=== PATIENT | male | born 1950 | race Caucasian/White ===

== ENCOUNTER 2016-11-20 15:49 | Inpatient (IN) | payer OTHER, MEDICAID ==
[2016-11-20] MEDS ORDERED: OXYCODONE-ACETAMINOPHEN 5-325 MG TABLET PO ONE ×2 (16:42→19:47)
--- NOTE | 2016-11-20 16:44 | ER Document Report ---
ED Medical Screen (RME) - General Chief Complaint: Fall Injury Stated Complaint: FALL FACE LACERATION Time seen by provider: 16:42 Mode of Arrival: Wheelchair Information source: Patient Notes: 66-year-old male was on the ladder and it slipped and he and the ladder fell onto a telephone box and ground causing laceration to his left top of his head, headache, left retro-sternal chest pain. No shortness of breath. Tetanus is current.. Consult Dr. SALEH for CTs. Abd.is nontender and triaged. TRAVEL OUTSIDE OF THE [place] IN LAST 30 DAYS: No - Related Data Allergies/Adverse Reactions: No Known Allergies Allergy (Verified 11/20/16 16:06) Past Medical History - Past Medical History Cardiac Medical History: Reports: Hx Heart Attack - [place] in 1990, Hx Hypertension Renal/ Medical History: Denies: Hx Peritoneal Dialysis GI Medical History: Reports: Hx Gastroesophageal Reflux Disease Past Surgical History: Reports: Hx Orthopedic Surgery - left thumb - Immunizations Hx Diphtheria, Pertussis, Tetanus Vaccination: - unknown Physical Exam - Vital signs Vitals: Temp Pulse Resp BP Pulse Ox 98.4 F 72 20 147/88 H 98 11/20/16 16:08 11/20/16 16:08 11/20/16 16:08 11/20/16 16:08 11/20/16 16:08 Course - Vital Signs Vital signs: Temp Pulse Resp BP Pulse Ox 98.4 F 72 20 147/88 H 98 11/20/16 16:08 11/20/16 16:08 11/20/16 16:08 11/20/16 16:08 11/20/16 16:08
[2016-11-20 17:00] LABS: ABSOLUTE EOSINOPHILS # (AUTO) 0.2 10^3/uL (0.0-0.6); ABSOLUTE MONOCYTES (AUTO) 0.6 10^3/uL (0.1-1.4); ABSOLUTE NEUT (AUTO) 4.5 10^3/uL (1.7-8.2); BASOPHILS % (AUTO) 0.6 % (0-2); EOSINOPHILS % (AUTO) 2.4 % (0-6); HEMATOCRIT 41.7 % (37.9-51.0); HEMOGLOBIN 14.3 g/dL (13.5-17.0); HGB HCT DIFFERENCE 1.2; LYMPHOCYTES % (AUTO) 27.3 % (13-45); MEAN CORPUSCULAR HEMOGLOBIN 33.7 pg (27.0-33.4); MEAN CORPUSCULAR HGB CONC 34.2 g/dL (32.0-36.0); MEAN CORPUSCULAR VOLUME 98 fl (80-97); MONOCYTES % (AUTO) 8.8 % (3-13); RED BLOOD COUNT 4.24 10^6/uL (4.35-5.55); RED CELL DISTRIBUTION WIDTH 14.2 % (11.5-14.0); SEGMENTED NEUTROPHILS % (AUTO) 60.9 % (42-78); WHITE BLOOD COUNT 7.3 10^3/uL (4.0-10.5)
[2016-11-20 17:22] LABS: ALANINE AMINOTRANSFERASE 27 U/L (21-72); ALBUMIN 4.6 g/dL (3.5-5.0); ALKALINE PHOSPHATASE 96 U/L (38-126); ANION GAP 14 (5-19); ASPARTATE AMINO TRANSFERASE 30 U/L (17-59); BILIRUBIN,DIRECT 0.2 mg/dL (0.0-0.4); BILIRUBIN,TOTAL 0.5 mg/dL (0.2-1.3); BLOOD UREA NITROGEN 18 mg/dL (7-20); CALCIUM 9.6 mg/dL (8.4-10.2); CARBON DIOXIDE 24 mmol/L (22-30); CHLORIDE 106 mmol/L (98-107); CREATININE RESULT 0.87 mg/dL (0.52-1.25); GLUCOSE 96 mg/dL (75-110); POTASSIUM 3.9 mmol/L (3.6-5.0); SODIUM 143.9 mmol/L (137-145); TOTAL PROTEIN 7.9 g/dL (6.3-8.2)
[2016-11-20 17:50] LABS: PARTIAL THROMBOPLASTIN TIME 30.5 SEC (23.5-35.8); PROTHROMBIN TIME 12.8 SEC (11.4-15.4)
--- NOTE | 2016-11-20 18:17 | EKG REPORT ---
SEVERITY:- ABNORMAL ECG - SINUS RHYTHM FIRST DEGREE AV BLOCK PROBABLE LEFT ATRIAL ABNORMALITY LEFT BUNDLE BRANCH BLOCK : Confirmed by: Wing Vides MD 20-Nov-2016 18:16:51
[2016-11-20] MEDS ORDERED: HYDROMORPHONE HCL INJ/PF 2 MG/ML AMPULE IV ONE (20:45)
--- NOTE | 2016-11-20 20:47 | ER Document Report ---
ED General - General Chief Complaint: Fall Injury Stated Complaint: FALL FACE LACERATION Mode of Arrival: Wheelchair Information source: Patient Notes: 66-year-old male fell 6-7 feet striking a satellite dish with his chest and hitting his head on a concrete rock. pt denies any other concerns, notes chest wall pain and left sided rib pain with deep inspiration TRAVEL OUTSIDE OF THE [place] IN LAST 30 DAYS: No - HPI Onset: Just prior to arrival Onset/Duration: Sudden Quality of pain: Achy Severity: Mild Pain Level: 1 Associated symptoms: Other Exacerbated by: Denies Relieved by: Denies Similar symptoms previously: Yes Recently seen / treated by doctor: No - Related Data Allergies/Adverse Reactions: No Known Allergies Allergy (Verified 11/20/16 16:06) Past Medical History - General Information source: Patient - Social History Smoking Status: Current Every Day Smoker Cigarette use (# per day): Yes Chew tobacco use (# tins/day): No Smoking Education Provided: No Family History: Reviewed & Not Pertinent Patient has suicidal ideation: No Patient has homicidal ideation: No - Past Medical History Cardiac Medical History: Reports: Hx Heart Attack - [place] in 1990, Hx Hypertension Renal/ Medical History: Denies: Hx Peritoneal Dialysis GI Medical History: Reports: Hx Gastroesophageal Reflux Disease Past Surgical History: Reports: Hx Orthopedic Surgery - left thumb - Immunizations Hx Diphtheria, Pertussis, Tetanus Vaccination: - unknown Review of Systems - Review of Systems Notes: REVIEW OF SYSTEMS: CONSTITUTIONAL : Denies fever, chills, or sweats. Denies recent illness. EENT: Denies eye, ear, throat, or mouth pain or symptoms. Denies nasal or sinus congestion or discharge. Denies throat, tongue, or mouth swelling or difficulty swallowing. CARDIOVASCULAR: Denies chest pain. Denies palpitations or racing or irregular heart beat. Denies ankle edema. RESPIRATORY: Admits to chest wall pain GASTROINTESTINAL: Denies abdominal pain or distention. Denies nausea, vomiting , or diarrhea. Denies blood in vomitus, stools, or per rectum. Denies black, tarry stools. Denies constipation. GENITOURINARY: Denies difficulty urinating, painful urination, burning, frequency, blood in urine, or discharge. MUSCULOSKELETAL: Denies back or neck pain or stiffness. Denies joint pain or swelling. SKIN: Denies rash, lesions or sores. HEMATOLOGIC : Denies easy bruising or bleeding. LYMPHATIC: Denies swollen, enlarged glands. NEUROLOGICAL: Denies confusion or altered mental status. Denies passing out or loss of consciousness. Denies dizziness or lightheadedness. Denies headache. Denies weakness or paralysis or loss of use of either side. Denies problems with gait or speech. Denies sensory loss, numbness, or tingling. Denies seizures. PSYCHIATRIC: Denies anxiety or stress. Denies depression, suicidal ideation, or homicidal ideation. ALL OTHER SYSTEMS REVIEWED AND NEGATIVE. Dictation was performed using [employer] recognition software PHYSICAL EXAMINATION: GENERAL: Well-appearing, well-nourished and in no acute distress. C collar in place. GCS 15 HEAD: Laceration left scalp 4 cm EYES: Pupils equal round and reactive to light, extraocular movements intact, sclera anicteric, conjunctiva are normal. ENT: Nares patent, oropharynx clear without exudates. Moist mucous membranes. No hemanotympanum . No blood in nares. No dental fracture NECK: Normal range of motion, supple without lymphadenopathy. Trachea midline LUNGS: Breath sounds clear to auscultation bilaterally and equal. No wheezes rales or rhonchi. HEART: Regular rate and rhythm without murmurs. Pulses intact all throughout. ABDOMEN: Soft, nontender, nondistended abdomen. No guarding, no rebound. No masses appreciated. Musculoskeletal: Normal range of motion, no pitting or edema. No cyanosis. Hip non tender, stable. NEUROLOGICAL: Cranial nerves grossly intact. Normal speech, normal gait. Normal sensory, motor, and reflex exams. PSYCH: Normal mood, normal affect. SKIN: Laceration scalp, contusion right chest wall U/S fast exam notes no obvious free fluid but this is a nondiagnostic evaluation Physical Exam - Vital signs Vitals: Temp Pulse Resp BP Pulse Ox 98.4 F 72 20 147/88 H 98 11/20/16 16:08 11/20/16 16:08 11/20/16 16:08 11/20/16 16:08 11/20/16 16:08 Course - Re-evaluation Re-evalutation: 11/20/16 21:11 CT was consistent with a manubrium fracture as well as a left fourth rib fracture. Patient was discussed with on-call surgeon.. He recommends admission , patient is willing to be admitted 11/20/16 21:13 - Vital Signs Vital signs: Temp Pulse Resp BP Pulse Ox 98.4 F 72 20 147/88 H 98 11/20/16 16:08 11/20/16 16:08 11/20/16 16:08 11/20/16 16:08 11/20/16 16:08 - Laboratory Result Diagrams: 11/20/16 16:50 11/20/16 16:50 Laboratory results interpreted by me: 11/20/16 16:50 RBC 4.24 L MCV 98 H MCH 33.7 H RDW 14.2 H - Diagnostic Test Radiology reviewed: Image reviewed, Reports reviewed Procedures - Laceration/Wound Repair Left Head Time completed: 21:00 Wound length (cm): 5 Wound's Depth, Shape: Irregular Laceration pre-procedure: Sterile PPE donned, Sterile drapes applied Wound explored: Clean, No foreign body removed Irrigated w/ Saline (mLs): 1,000 Wound Debrided: Minimal Wound Repaired With: [place] Number of Sutures: 4 Critical Care Note - Critical Care Note Total time excluding time spent on procedures (mins): 40 Comments: minutes of critical care time spent in direct contact evaluating and reevaluating the patient, treating symptoms, reviewing labs and studies and speaking with family and consultants excluding any procedures Discharge - Discharge Clinical Impression: Fracture of manubrium Qualifiers: Encounter type: initial encounter Fracture type: closed Qualified Code(s): S22.21XA - Fracture of manubrium, initial encounter for closed fracture Left rib fracture Qualifiers: Encounter type: initial encounter Rib fracture type: single rib Fracture type: closed Qualified Code(s): S22.32XA - Fracture of one rib, left side, initial encounter for closed fracture Fall Qualifiers: Encounter type: initial encounter Qualified Code(s): W19.XXXA - Unspecified fall, initial encounter Laceration of head Qualifiers: Encounter type: initial encounter Location of open wound of head: scalp Foreign body presence: without foreign body Qualified Code(s): S01.01XA - Laceration without foreign body of scalp, initial encounter Condition: Fair Disposition: ADMITTED INPATIENT Admitting Provider: Surgicalist Unit Admitted: Surgical Floor
[2016-11-20] MEDS ORDERED: ONDANSETRON HCL INJ/PF 4 MG/2 ML SDV IV PRN (21:40)
[2016-11-20] MEDS: FAMOTIDINE 20 MG TABLET PO SCH (22:13)
[2016-11-21] MEDS ORDERED: HYDROMORPHONE HCL INJ/PF 2 MG/ML AMPULE IV ONE (03:06)
[2016-11-21] MEDS ORDERED: HYDROMORPHONE HCL INJ/PF 2 MG/ML AMPULE IV PRN (06:06)
[2016-11-21] MEDS: HYDROMORPHONE HCL INJ/PF 2 MG/ML AMPULE IV PRN ×4 (06:16→21:39)
[2016-11-21 06:57] LABS: HEMATOCRIT 39.7 % (37.9-51.0); HEMOGLOBIN 13.8 g/dL (13.5-17.0); HGB HCT DIFFERENCE 1.7; MEAN CORPUSCULAR HEMOGLOBIN 34.1 pg (27.0-33.4); MEAN CORPUSCULAR HGB CONC 34.7 g/dL (32.0-36.0); MEAN CORPUSCULAR VOLUME 98 fl (80-97); RED BLOOD COUNT 4.04 10^6/uL (4.35-5.55); RED CELL DISTRIBUTION WIDTH 14.4 % (11.5-14.0); WHITE BLOOD COUNT 7.4 10^3/uL (4.0-10.5)
--- NOTE | 2016-11-21 07:50 | EKG REPORT ---
SEVERITY:- ABNORMAL ECG - SINUS RHYTHM FIRST DEGREE AV BLOCK PROBABLE LEFT ATRIAL ABNORMALITY LEFT BUNDLE BRANCH BLOCK : Confirmed by: Wing Vides MD 21-Nov-2016 07:49:49
[2016-11-21] MEDS ORDERED: HYDROCODONE/ACETAMINOPHEN 5-325 MG TABLET PO PRN ×2 (09:48)
[2016-11-21] MEDS: LISINOPRIL 10 MG TABLET PO SCH (09:59)
[2016-11-21] MEDS: FAMOTIDINE 20 MG TABLET PO SCH ×2 (10:00→21:39)
[2016-11-21] MEDS ORDERED: HYDROMORPHONE HCL 2 MG TABLET PO PRN (10:56)
--- NOTE | 2016-11-21 13:20 | EKG REPORT ---
SEVERITY:- ABNORMAL ECG - SINUS RHYTHM FIRST DEGREE AV BLOCK PROBABLE LEFT ATRIAL ABNORMALITY LEFT BUNDLE BRANCH BLOCK : Confirmed by: Wing Vides MD 21-Nov-2016 13:19:32
[2016-11-21] MEDS: METHADONE HCL 10 MG TABLET PO SCH ×2 (13:48→21:39)
[2016-11-22] MEDS: HYDROMORPHONE HCL INJ/PF 2 MG/ML AMPULE IV PRN (00:17)
[2016-11-22] MEDS: METHADONE HCL 10 MG TABLET PO SCH ×2 (05:18→14:19)
[2016-11-22] MEDS: FAMOTIDINE 20 MG TABLET PO SCH (09:19)
[2016-11-22] MEDS: LISINOPRIL 10 MG TABLET PO SCH (09:19)
[2016-11-22] MEDS ORDERED: IBUPROFEN 600 MG TABLET PO PRN (13:30)
[2016-11-22 14:51] VITALS: BP 134/68
--- NOTE | 2016-11-22 23:58 | PROGRESS NOTE E ---
Progress Note NAME: REMI DICKSON : 1950 AGE: 66Y DATE: 11/21/2016 ROOM: 537 Patient had fallen off a roof, striking his chest, suffering a manubrial fracture left fourth rib and a scalp laceration. SUBJECTIVE: Patient is complaining of pain in the left rib region and sternum. OBJECTIVE: LUNGS: Diminished airflow. CHEST: There is mild tenderness over the sternum and left upper chest region where he has his rib fracture. SCALP: He has a scalp laceration that is clean without any evidence of infection. ASSESSMENT: 1. Fall with blunt chest trauma, suffering a manubrial and left fourth rib fracture. Patient is using his incentive spirometer and trying to obtain adequate pain control in order for him to breathe adequately. He currently is needing IV pain medication in addition to his p.o. methadone. Once the pain is adequately controlled, we will switch him over to oral Dilaudid. As he has a history of hepatitic C, it is recommended by his doctors according to the patient not to take Tylenol. 2. Scalp laceration. Clean without any evidence of infection. PLAN: 1. Pain control. 2. Deep breathing including using incentive spirometer. 3. Mobilization. DICTATING PHYSICIAN: AIDEE MÉNDEZ M.D. [id number] PHY#: [id number] ID: [id number] JOB#: [id number] ACCT: [id number] cc: >
--- NOTE | 2016-11-23 06:33 | DISCHARGE SUMMARY E ---
Discharge Summary NAME: RMEI DICKSON : 1950 AGE: 66Y ADMITTED: 11/21/2016 DISCHARGED: 11/22/2016 REASON FOR ADMISSION: Fall with blunt chest trauma. HISTORY OF PRESENT ILLNESS: Patient is a 66-year-old male who was working on the roof when ladder slipped with him falling. He had slid on the roof, struck a satellite dish with his chest, and then fell to the ground about 7-10 feet. He had complaints of left-sided chest pain and scalp afterwards. He did not have any loss of consciousness or shortness of breath. He was able to get to the car under his own power. He was then brought to the emergency room to be evaluated. Therefore, he had a Augusto Coma Scale of 15, alert and oriented x3. He had a CT scan of his head, neck, and chest. It did show a manubrial fracture and a left fourth rib fracture. Because of the nature of his injury, it was recommended that he be admitted to the hospital for observation. PRINCIPAL DIAGNOSIS: Fall with blunt chest trauma and scalp laceration. He has a nondisplaced manubrium fracture and left rib fracture. OTHER MEDICAL PROBLEMS: 1. Coronary artery disease with history of myocardial infarction. 2. Hypercholesterolemia. 3. Hypertension. 4. Chronic pain in his back, which he takes methadone. HOSPITAL COURSE: The patient was admitted to the hospital and had pain control. Because of his pain, he had poor respiration. Once he had adequate pain control and taught how to use his incentive spirometer, his breathing improved significantly. He was placed on his home medications. He did not have any further bleeding from his scalp laceration. Followup chest x-rays and EKGs were unchanged. Once his pain was controlled with IV pain medication, he was switched to oral Dilaudid. He states that he has a history of hepatitis C, but was treated for this and his antigen was undetectable. He was then discharged 2 days after being admitted. He was breathing much better than on admission, having adequate pain control. DISCHARGE PROGRAM: Patient will be discharged home. Follow up in surgical clinic in 1 week. He is to resume his home medications, in addition Dilaudid 2 mg p.o. q. 6 hours p.r.n. pain. He may shower. He is to keep the scalp closure site clean. DICTATING PHYSICIAN: AIDEE MÉNDEZ M.D. [id number] PHY#: [id number] ID: [id number] JOB#: [id number] ACCT: [id number] cc:Lynda LIAM M.D. >
--- NOTE | 2016-11-23 09:29 | HISTORY AND PHYSICAL E ---
History and Physical NAME: REMI DICKSON : 1950 AGE: 66Y ADMITTED: 11/21/2016 ROOM: 537 REASON FOR ADMISSION: Fall with blunt chest trauma. HISTORY OF PRESENT ILLNESS: The patient is a 66-year-old male who was working on roof, climbing a ladder. He had slipped sliding down and striking his chest on a dish. He then fell to the ground. He had complaints of chest pain where he had fallen. He did not have any loss of consciousness. He did hit his scalp on some object. He was able to walk to his vehicle. He was then transported to the emergency room. ALLERGIES TO MEDICATIONS: None. PAST MEDICAL HISTORY: Medical problems: Coronary artery disease with history of myocardial infarction, hypertension, gastroesophageal reflux disease, chronic back pain, hypercholesterolemia, and COPD. PAST SURGICAL HISTORY: Orthopedic surgery. MEDICATIONS: 1. Omeprazole. 2. Methadone. 3. Lisinopril. 4. Atorvastatin. 5. Hydrochlorothiazide. HABITS: Patient does smoke. Denies any significant alcohol or drug use. SOCIAL HISTORY: Patient is . FAMILY HISTORY: Noncontributory. REVIEW OF SYSTEMS: CONSTITUTIONAL: Sore from falling. PULMONARY: Complains of chest pain with breathing secondary to the trauma. HEENT: Scalp pain from his injury. A 12-point review of systems was obtained with pertinent positives discussed and all others being negative. PHYSICAL EXAMINATION: VITAL SIGNS: Heart rate 74, blood pressure 147/66. GENERAL: Patient is lying in bed. He is cooperative, in no distress at the current time. HEENT: He has a 2-inch scalp laceration that has been closed with sanjay by the emergency room personnel. EYES: Nonicteric. FACE: No injuries. NECK: Nontender. CHEST: Tender over the left rib area. No significant bruising. ABDOMEN: Soft and nontender. BACK: Nontender. PELVIS: Stable. EXTREMITIES: Mild abrasions on the right extremity. No deformities. Full range of motion. Normal motor function. PSYCHOLOGICAL: Patient is coherent, cooperative and appears to answer questions fully. NEUROLOGICAL: Patient does not appear to have any neurological deficits. DIAGNOSTIC STUDIES: Patient has nondisplaced manubrium fracture on the CT scan of his chest along with the left fourth rib fracture. CT of the head and neck are normal. White blood cell count is 7, hemoglobin 14. ASSESSMENT: 1. Fall with blunt chest trauma. He has a nondisplaced manubrium fracture and left fourth rib fracture. I would recommend the patient be admitted to hospital for observation, as he sustained significant blunt chest trauma. His EKG shows changes related to his old cardiac history, but no apparent new findings. 2. Scalp laceration, closed in the emergency room. PLAN 1. The patient is to be admitted for observation. 2. Regular diet. 3. Cough, deep breathing, and incentive spirometer use. 4. Adequate pain control. DICTATING PHYSICIAN: AIDEE MÉNDEZ M.D. [id number] PHY#: [id number] ID: [id number] JOB#: [id number] ACCT: [id number] cc: >
== END 2016-11-22 15:49 | disposition home or self-care (01) | DRG 185 ==
LOC: ER 15:49 → EH 21:20 → UNDOADMIN 21:20 → EH 21:40 → UNDOADMIN 21:40 → INTOOBSV 21:40 → OBSVTOIN 21:40 → EH 11-21 02:52 → 5 11-21 15:59 → EH 11-21 18:16 → 5 11-21 18:16
PROVIDERS: ADMIT Surgery; ATTEND Surgery
PROC: 0HQ0XZZ Repair Scalp Skin, External Approach (ICD-10-PCS; principal; 2016-11-21)
DX: S22.21XA Fracture of manubrium, initial encounter for closed fracture (principal); S22.32XA Fracture of one rib, left side, initial encounter for closed fracture; S01.01XA Laceration without foreign body of scalp, initial encounter; W11.XXXA Fall on and from ladder, initial encounter; I25.10 Atherosclerotic heart disease of native coronary artery without angina pectoris; E78.00 Pure hypercholesterolemia, unspecified; I10 Essential (primary) hypertension; G89.29 Other chronic pain; K21.9 Gastro-esophageal reflux disease without esophagitis; M54.9 Dorsalgia, unspecified; F17.210 Nicotine dependence, cigarettes, uncomplicated; I25.2 Old myocardial infarction; Z79.899 Other long term (current) drug therapy
CPT/HCPCS: 36415; 70450; 71020; 71260; 72125; 80053; 85025; 85027; 85610; 85730; 93005; 93010; 96374; 99285; J1170; J3490; L0120

== ENCOUNTER → 2018-06-12 | Outpatient (CLI) | payer MEDICARE, MEDICAID ==
[2018-06-12 11:09] LABS: ABSOLUTE EOSINOPHILS # (AUTO) 0.1 10^3/uL (0.0-0.6); ABSOLUTE LYMPHOCYTES (AUTO) 1.6 10^3/uL (0.5-4.7); ABSOLUTE MONOCYTES (AUTO) 0.7 10^3/uL (0.1-1.4); ABSOLUTE NEUT (AUTO) 6.6 10^3/uL (1.7-8.2); BASOPHILS % (AUTO) 0.4 % (0-2); EOSINOPHILS % (AUTO) 1.5 % (0-6); HEMATOCRIT 40.3 % (37.9-51.0); HEMOGLOBIN 13.7 g/dL (13.5-17.0); LYMPHOCYTES % (AUTO) 17.7 % (13-45); MEAN CORPUSCULAR HEMOGLOBIN 33.1 pg (27.0-33.4); MEAN CORPUSCULAR HGB CONC 33.9 g/dL (32.0-36.0); MEAN CORPUSCULAR VOLUME 98 fl (80-97); MONOCYTES % (AUTO) 7.7 % (3-13); PLATELET COUNT 251 10^3/uL (150-450); RED BLOOD COUNT 4.14 10^6/uL (4.35-5.55); RED CELL DISTRIBUTION WIDTH 14.9 % (11.5-14.0); SEGMENTED NEUTROPHILS % (AUTO) 72.7 % (42-78); TOTAL CELLS COUNTED % (AUTO) 100 %; WHITE BLOOD COUNT 9.1 10^3/uL (4.0-10.5)
[2018-06-12 11:22] LABS: ALANINE AMINOTRANSFERASE 13 U/L (21-72); ALBUMIN 3.9 g/dL (3.5-5.0); ALKALINE PHOSPHATASE 85 U/L (38-126); ANION GAP 12 (5-19); ASPARTATE AMINO TRANSFERASE 20 U/L (17-59); BILIRUBIN,DIRECT 0.3 mg/dL (0.0-0.4); BILIRUBIN,TOTAL 0.4 mg/dL (0.2-1.3); BLOOD UREA NITROGEN 17 mg/dL (7-20); CALCIUM 9.4 mg/dL (8.4-10.2); CARBON DIOXIDE 28 mmol/L (22-30); CHLORIDE 104 mmol/L (98-107); GLUCOSE 125 mg/dL (75-110); POTASSIUM 5.5 mmol/L (3.6-5.0); SODIUM 143.5 mmol/L (137-145)
== END ==
LOC: LAB 10:37
PROVIDERS: ATTEND Internal Medicine Cardiovascular Disease
DX: R06.00 Dyspnea, unspecified (principal)
CPT/HCPCS: 36415; 80053; 85025

== ENCOUNTER 2018-07-21 00:26 | Emergency (ER) | payer MEDICARE, MEDICAID ==
--- NOTE | 2018-07-21 00:51 | ER Document Report ---
ED Extremity Problem, Lower - General Stated Complaint: LEG SWELLING Time Seen by Provider: 07/21/18 00:39 TRAVEL OUTSIDE OF THE [place] IN LAST 30 DAYS: No - HPI Notes: Patient is a 68-year-old male that presents to the emergency department for chief complaint of right leg edema. Patient had CABG x4 with harvesting of pain in his right leg done by Dr. Narvaez at [facility] in [place] about a week and a half ago. Patient states since the procedure he has had pain and swelling in his right leg. He did call Dr. Narvaez who recommended elevation and close follow-up in the office. Patient has been taking methadone at home for pain. He states tonight the pain had increased. He denies fevers and chills. He denies drainage from the wound. He denies any injury or trauma. His pain is sharp and worse with movement. The pain is relieved with methadone and elevation. Past Medical History: Hypertension, hyperlipidemia, COPD, CAD Past Surgical History: CABG Social History: Former smoker. Denies drug use. Family History: Reviewed and noncontributory for presenting illness Allergies: Reviewed, see documented allergy list. REVIEW OF SYSTEMS: CONSTITUTIONAL : No fever No chills No diaphoresis No recent illness EENT: No vision changes No congestion No sore throat CARDIOVASCULAR: No chest pain No palpitations RESPIRATORY: No shortness of breath No cough No difficulty breathing GASTROINTESTINAL: No abdominal pain No nausea No vomiting No diarrhea GENITOURINARY: No dysuria No hematuria No difficulty urinating MUSCULOSKELETAL: No back pain No leg pain No arm pain SKIN: No rashes No lesions LYMPHATIC: No swollen, enlarged glands. NEUROLOGICAL: No lightheadedness No headache No weakness No paresthesias PSYCHIATRIC: No anxiety No depression PHYSICAL EXAMINATION: Vital signs reviewed, nursing noted reviewed. GENERAL: Well-appearing, well-nourished and in no acute distress. HEAD: Atraumatic, normocephalic. EYES: Eyes appear normal, extraocular movements intact, sclera anicteric, conjunctiva are normal. ENT: nares patent, oropharynx clear without exudates. Moist mucous membranes. NECK: Normal range of motion, supple without lymphadenopathy LUNGS: Breath sounds clear to auscultation bilaterally and equal. No wheezes rales or rhonchi. HEART: Regular rate and rhythm without murmurs. +2/4 right DP and PT pulse ABDOMEN: Soft, nontender, normoactive bowel sounds. No rebound, guarding, or rigidity. No masses appreciated. EXTREMITIES: good range of motion, right lower extremity edema and superficial spider veins. Tenderness to palpation of right medial thigh. 2.5 cm linear right medial thigh postop incision with overlying scab, no surrounding erythema, no drainage, well-healing NEUROLOGICAL: No focal neurological deficits. Moves all extremities spontaneously Motor and sensory grossly intact on exam. PSYCH: Normal mood, normal affect. SKIN: Warm, Dry, normal turgor, no rashes or lesions noted on exposed skin - Related Data Allergies/Adverse Reactions: No Known Allergies Allergy (Verified 11/20/16 16:06) Past Medical History - Social History Smoking Status: Former Smoker Family History: Reviewed & Not Pertinent - Past Medical History Cardiac Medical History: Reports: Hx Heart Attack - 2 [place], Hx Hypertension Renal/ Medical History: Denies: Hx Peritoneal Dialysis GI Medical History: Reports: Hx Gastroesophageal Reflux Disease Musculoskeletal Medical History: Reports Hx Arthritis Past Surgical History: Reports: Hx Orthopedic Surgery - left thumb - Immunizations Hx Diphtheria, Pertussis, Tetanus Vaccination: No - unknown Course - Re-evaluation Re-evalutation: 07/21/18 00:52 Vitals reviewed. Nursing notes reviewed. Patient has some edema of his right lower extremity which is likely secondary to his recent surgery. He has normal arterial flow to the right foot and no signs of compartment syndrome. Vascular studies to evaluate for DVT are not currently available. Because of his recent surgery he will not be prophylactically anticoagulated. Patient will return to the hospital in the morning for right lower extremity venous duplex. He was given a prescription for this to be performed as an outpatient. Patient will return to the emergency room for new or worsening symptoms. He will call Dr. Villanueva Sunday to establish close follow-up with his surgeon. Discharge - Discharge Clinical Impression: Leg edema, right Condition: Stable Disposition: HOME, SELF-CARE Additional Instructions: Please return to the emergency department if you have any worsening, or concern of your symptoms. Please return to the emergency department if you develop chest pain, difficulty breathing, severe abdominal pain, or ongoing vomiting. Please follow-up with your primary care physician in 2-3 days and any other recommended physicians. If prescribed, take all medications as directed. If you have any questions or concerns do not hesitate to return the emergency department for evaluation. Call Dr. Narvaez for close follow-up on your leg wound. Return to outpatient radiology tomorrow to obtain ultrasound of her right leg to evaluate for blood clot. Forms: Follow-Up Outpatient Testing Referrals: DARREN JONES MD [Primary Care Provider] - Follow up as needed
== END 2018-07-21 01:25 | disposition home or self-care (01) ==
LOC: ER 00:26
DX: R60.0 Localized edema (principal); I25.2 Old myocardial infarction; I10 Essential (primary) hypertension
CPT/HCPCS: 93971; 99283

== ENCOUNTER → 2018-07-21 | Outpatient (CLI) | payer MEDICARE, MEDICAID ==
--- NOTE | 2018-07-21 19:23 | RADIOLOGY REPORT (SQ) ---
EXAM DESCRIPTION: VENOUS UNILATERAL LOWER COMPLETED DATE/TIME: 07/21/2018 6:41 pm REASON FOR STUDY: er 42 edama right leg COMPARISON: None. TECHNIQUE: Dynamic and static zhao scale and color images acquired of the right leg venous system. S elected spectral images acquired with additional compression and augmentation maneuvers. The contrala teral common femoral vein and saphenofemoral junction were also imaged. Images stored on PACS. LIMITATIONS: None. FINDINGS: COMMON FEMORAL: Normal phasicity, compression and augmentation. No visualized echogenic ma terial on zhao scale. No defects on color images. FEMORAL: Normal compression and augmentation. No visualized echogenic material on zhao scale. No defe cts on color images. POPLITEAL: Normal compression, augmentation. No visualized echogenic material on zhao scale. No defec ts on color images. CALF VESSELS: Normal compression, augmentation. No visualized echogenic material on zhao scale. No de fects on color images. GSV and SSV: Normal compression, augmentation. No visualized echogenic material on zhao scale. No def ects on color images. ANY DEEP VENOUS INSUFFICIENCY: Not evaluated. OTHER: Avascular septated hypoechoic collection extending from the anteromedial right mid thigh to th e knee. Additional more focal collection along the medial knee measuring approximately 3.6 x 1.4 x 3 .1 cm. Subcutaneous edema noted within the ankle. No evidence of popliteal cyst. CONTRALATERAL COMMON FEMORAL VEIN AND SAPHENOFEMORAL JUNCTION: Normal phasicity, compression and augmentation. No visualized echogenic material on zhao scale. No de fects on color images. IMPRESSION: 1. No evidence of DVT or SVT in the right leg. 2. Avascular hypoechoic septated collection extending from the anteromedial right mid thigh to the l evel of the knee likely postoperative seroma. Additional more focal collection along the medial knee measuring approximately 3.6 x 1.4 x 3.1 cm also likely postoperative seroma. 3. Subcutaneous edema noted at the level of the ankle. TECHNICAL DOCUMENTATION: JOB ID: [id number] [employer]- All Rights Reserved Reading location - IP/workstation name: [email or web address]
== END ==
LOC: RAD 17:02
PROVIDERS: ATTEND Emergency Medicine
DX: R60.0 Localized edema (principal)
CPT/HCPCS: 93971

== ENCOUNTER 2019-01-20 06:30 | Emergency (ER) | payer MEDICARE, MEDICAID ==
[2019-01-20 07:02] LABS: ABSOLUTE EOSINOPHILS # (AUTO) 0.2 10^3/uL (0.0-0.6); ABSOLUTE MONOCYTES (AUTO) 0.5 10^3/uL (0.1-1.4); ABSOLUTE NEUT (AUTO) 6.3 10^3/uL (1.7-8.2); BASOPHILS % (AUTO) 0.5 % (0-2); EOSINOPHILS % (AUTO) 2.2 % (0-6); HEMOGLOBIN 12.5 g/dL (13.5-17.0); TOTAL CELLS COUNTED % (AUTO) 100 %
[2019-01-20 07:07] LABS: ALANINE AMINOTRANSFERASE 17 U/L (21-72); ALBUMIN 3.4 g/dL (3.5-5.0); ALKALINE PHOSPHATASE 90 U/L (38-126); ANION GAP 7 (5-19); ASPARTATE AMINO TRANSFERASE 19 U/L (17-59); BILIRUBIN,DIRECT 0.3 mg/dL (0.0-0.4); BILIRUBIN,TOTAL 0.4 mg/dL (0.2-1.3); BLOOD UREA NITROGEN 15 mg/dL (7-20); CALCIUM 8.5 mg/dL (8.4-10.2); CARBON DIOXIDE 27 mmol/L (22-30); CHLORIDE 105 mmol/L (98-107); GLUCOSE 108 mg/dL (75-110); POTASSIUM 3.9 mmol/L (3.6-5.0); SODIUM 138.8 mmol/L (137-145); TOTAL PROTEIN 6.4 g/dL (6.3-8.2)
[2019-01-20 07:13] LABS: ABSOLUTE LYMPHOCYTES (AUTO) 1.2 10^3/uL (0.5-4.7); HEMATOCRIT 36.4 % (37.9-51.0); LYMPHOCYTES % (AUTO) 14.6 % (13-45); MEAN CORPUSCULAR HEMOGLOBIN 32.7 pg (27.0-33.4); MEAN CORPUSCULAR HGB CONC 34.2 g/dL (32.0-36.0); MEAN CORPUSCULAR VOLUME 96 fl (80-97); MONOCYTES % (AUTO) 5.8 % (3-13); PLATELET COUNT 231 10^3/uL (150-450); RED BLOOD COUNT 3.81 10^6/uL (4.35-5.55); RED CELL DISTRIBUTION WIDTH 14.6 % (11.5-14.0); SEGMENTED NEUTROPHILS % (AUTO) 76.9 % (42-78); WHITE BLOOD COUNT 8.2 10^3/uL (4.0-10.5)
[2019-01-20] MEDS ORDERED: IPRATROPIUM/ALBUTEROL 0.5-2.5 MG/3 ML AMPUL NEB ONE (07:24)
--- NOTE | 2019-01-20 07:35 | RADIOLOGY REPORT (SQ) ---
EXAM DESCRIPTION: X-ray single view chest. CLINICAL HISTORY: 68 years Male, SOB COMPARISON: 11/22/2016 and 11/21/2016. TECHNIQUE: Single portable x-ray view of the chest performed on 01/20/2019 at 7:16 AM FINDINGS: The lungs are hyperinflated. There is diffuse coarsening of the interstitial markings throughout the lungs likely due to chronic parenchymal fibrosis. These findings are most pronounced in the left inferior hemithorax which could be related to acute inflammatory changes. There is no evidence of a pneumothorax. The cardiac silhouette is normal in size and configuration. There are remote postsurgical changes of the mediastinum. The mediastinal contours are normal. No acute osseous abnormality is identified. There are degenerative changes of the osseous structures. No focal soft tissue abnormalities are seen. Lines and tubes: None. IMPRESSION: 1. Hyperinflation of the lungs. 2. Increasing interstitial prominence bilaterally with greatest involvement of the left inferior hemithorax. Findings may be due to chronic parenchymal fibrosis, interstitial edema or inflammatory changes, particularly in the left inferior hemithorax. 3. Remote median sternotomy.
[2019-01-20 07:44] LABS: TROPONIN I 0.026 ng/mL
[2019-01-20] MEDS ORDERED: LISINOPRIL 10 MG TABLET PO ONE (08:16)
[2019-01-20] MEDS ORDERED: CARVEDILOL 3.125 MG TABLET PO ONE (08:16)
[2019-01-20] MEDS ORDERED: FUROSEMIDE INJ/PF 40 MG/4 ML SDV IV ONE (08:16)
[2019-01-20] MEDS ORDERED: MAGNESIUM OXIDE 400 MG TABLET PO ONE (08:17)
[2019-01-20 09:33] VITALS: BP 165/83
--- NOTE | 2019-01-20 11:33 | ER Document Report ---
ED General - General Chief Complaint: Shortness Of Breath Stated Complaint: RESPIRATORY DISTRESS Time Seen by Provider: 01/20/19 07:13 Primary Care Provider: NIKKI NAVA MD [Primary Care Provider] - Follow up tomorrow Mode of Arrival: Ambulatory Information source: Patient TRAVEL OUTSIDE OF THE [place] IN LAST 30 DAYS: No - HPI Notes: Patient is a 68-year-old male smoker history of previous LA June 2018 with bypass surgery and hypercholesterolemia presents the emergency department with report that he has not been taking his medications regularly which include potassium Lasix Coreg amiodarone Lipitor and isosorbide. The patient has been compliant with his methadone which he takes 3 times a day. The patient presents with report of dyspnea that has progressed over the course of the last 2 to 3 days. The patient also informs me that he has started smoking again. The patient reports no chest pain. The patient denies any nausea or vomiting or fever or chills. He reports minimal nonproductive cough. He states he has an inhaler at home. The patient is not on nebulizers. No constipation or diarrhea or dysuria. - Related Data Allergies/Adverse Reactions: No Known Allergies Allergy (Verified 01/20/19 06:43) Past Medical History - General Information source: Patient - Social History Smoking Status: Current Every Day Smoker Frequency of alcohol use: None Drug Abuse: None Lives with: Friend Family History: Reviewed & Not Pertinent Patient has suicidal ideation: No Patient has homicidal ideation: No - Past Medical History Cardiac Medical History: Reports: Hx Heart Attack - 2 LA, Hx Hypertension Pulmonary Medical History: Reports: Hx COPD Renal/ Medical History: Denies: Hx Peritoneal Dialysis GI Medical History: Reports: Hx Gastroesophageal Reflux Disease Musculoskeletal Medical History: Reports Hx Arthritis Past Surgical History: Reports: Hx Cardiac Surgery - CABGx4, Hx Orthopedic Surgery - left thumb - Immunizations Hx Diphtheria, Pertussis, Tetanus Vaccination: No - unknown Review of Systems - Review of Systems -: Yes All other systems reviewed and negative Physical Exam - Vital signs Vitals: Temp Pulse Resp BP Pulse Ox 97.9 F 83 17 154/91 H 97 01/20/19 06:32 01/20/19 06:32 01/20/19 06:32 01/20/19 06:32 01/20/19 06:32 - Notes Notes: PHYSICAL EXAMINATION: GENERAL: Cachectic white male with temporal muscle wasting. HEAD: Atraumatic, normocephalic. EYES: Pupils equal round and reactive to light, extraocular movements intact, sclera anicteric, conjunctiva are normal. ENT: Nares patent, oropharynx clear without exudates. Moist mucous membranes. NECK: Normal range of motion, supple without lymphadenopathy LUNGS: Scant mid lung field rales. Scant anterior wheeze. No accessory muscle use no retraction. HEART: Regular rate and rhythm with 1/6 GIOVANNI over apex. ABDOMEN: Soft, nontender, nondistended abdomen. No guarding, no rebound. No masses appreciated. Musculoskeletal: Normal range of motion. No cyanosis. 1+ lower extremity edema which patient states is chronic. NEUROLOGICAL: Cranial nerves grossly intact. Normal speech, normal gait. Normal sensory, motor exams PSYCH: Normal mood, normal affect. SKIN: Warm, Dry, normal turgor, no rashes or lesions noted. Course - Re-evaluation Re-evalutation: 01/20/19 11:53 Patient was given lisinopril which was on her old medication list and was given IV Lasix 40 mg and a DuoNeb. Repeat lung auscultation showed no wheezing and patient diuresed and was ambulatory and felt better and felt stable for discharge. He denies any further dyspnea and vital signs were stable and there was no hypoxia. No clinical suggestion for pneumonia. I counseled the patient at length about the need to take his medications regularly and the need for close follow-up, as he would need a repeat echocardiogram and further care. Patient left prior to being given formal discharge instructions. No suggestion for anemia or significant electrolyte imbalance or acute LA or ischemia. Initial and repeat troponin were both negative on the patient. - Vital Signs Vital signs: Temp Pulse Resp BP Pulse Ox 97.9 F 83 15 165/83 H 95 01/20/19 06:32 01/20/19 06:32 01/20/19 11:00 01/20/19 09:01 01/20/19 11:00 - Laboratory Result Diagrams: 01/20/19 06:36 01/20/19 06:36 Laboratory results interpreted by me: 01/20/19 01/20/19 01/20/19 06:36 06:36 06:36 RBC 3.81 L Hgb 12.5 L Hct 36.4 L RDW 14.6 H ALT 17 L NT-Pro-B Natriuret Pep 6540 H Albumin 3.4 L - EKG Interpretation by Me EKG shows normal: Sinus rhythm Additional EKG results interpreted by me: 01/20/19 11:53 EKG is interpreted by me showed normal sinus rhythm heart rate of 84. There is a left bundle branch block. There is no gross evidence for acute LA or ischemia noted. There is no significant changes compared to previous EKG reviewed from 11/21/2016. Discharge - Discharge Clinical Impression: Noncompliance CHF (congestive heart failure) Qualifiers: Heart failure type: unspecified Heart failure chronicity: acute on chronic Qualified Code(s): I50.9 - Heart failure, unspecified Condition: Stable Disposition: HOME, SELF-CARE Instructions: Congestive Heart Failure ([facility]), Stop Smoking ([facility]) Additional Instructions: Take your medications regularly as instructed. Stop smoking. Referrals: NIKKI NAVA MD [Primary Care Provider] - Follow up as needed
--- NOTE | 2019-01-21 00:33 | EKG REPORT ---
SEVERITY:- ABNORMAL ECG - SINUS RHYTHM PROBABLE LEFT ATRIAL ABNORMALITY LEFT BUNDLE BRANCH BLOCK : Confirmed by: Jaycee Pineda 21-Jan-2019 00:31:29
== END 2019-01-20 11:39 | disposition home or self-care (01) ==
LOC: ER 06:30
DX: R06.02 Shortness of breath (principal); R05 Cough; I50.9 Heart failure, unspecified; I11.0 Hypertensive heart disease with heart failure; E78.00 Pure hypercholesterolemia, unspecified; F17.200 Nicotine dependence, unspecified, uncomplicated; J44.9 Chronic obstructive pulmonary disease, unspecified; Z95.1 Presence of aortocoronary bypass graft; I25.2 Old myocardial infarction
CPT/HCPCS: 93005; 94640; 99285; 96374; 36415; 83735; 85025; 80053; 84484; 83880; 71045; 93010; A9270 ×4; J1940; J7620

== ENCOUNTER 2019-05-30 15:02 | Inpatient (IN) | payer MEDICARE, MEDICAID ==
--- NOTE | 2019-05-30 16:06 | ER Document Report ---
ED Respiratory Problem - General Chief Complaint: Shortness Of Breath Stated Complaint: SHORTNESS OF BREATH Time Seen by Provider: 05/30/19 16:05 TRAVEL OUTSIDE OF THE [place] IN LAST 30 DAYS: No - HPI Notes: 68-year-old male to the emergency department with complaints of progressively worsening shortness of breath for the past week. He states that every time he walks around he gets extremely short of breath. Also reports chest heaviness. He states that he is a smoker and he does have a history of COPD. He states that she has also been having leg swelling with his right leg swelling worse than his left. He states that he has not had a history of DVT. He did have a quadruple bypass several years ago. He states that he takes lisinopril, a water pill, aspirin daily. He denies any fevers or chills. States that he feels like he cannot get a good deep breath. He states he has been taking nebulizer at home without any relief. He denies any nausea or vomiting. He denies any diaphoresis. He denies any other complaints. - Related Data Allergies/Adverse Reactions: No Known Allergies Allergy (Verified 05/30/19 19:12) Home Medications: LISINOPRIL. PT IS UNSURE OF WHAT OTHER MEDS HE TAKES AT HOME. Past Medical History - General Information source: Patient - Social History Smoking Status: Current Every Day Smoker Chew tobacco use (# tins/day): No Frequency of alcohol use: None Drug Abuse: None Family History: Reviewed & Not Pertinent, CAD, Hypertension Patient has suicidal ideation: No Patient has homicidal ideation: No - Past Medical History Cardiac Medical History: Reports: Hx Heart Attack - 2 [place], Hx Hypertension Pulmonary Medical History: Reports: Hx COPD Renal/ Medical History: Denies: Hx Peritoneal Dialysis GI Medical History: Reports: Hx Gastroesophageal Reflux Disease Musculoskeletal Medical History: Reports Hx Arthritis Past Surgical History: Reports: Hx Cardiac Surgery - CABGx4, Hx Orthopedic Surgery - left thumb - Immunizations Hx Diphtheria, Pertussis, Tetanus Vaccination: No - unknown Review of Systems - Review of Systems Constitutional: Chills, Fever EENT: No symptoms reported. denies: Ear pain Cardiovascular: Chest pain, Dyspnea. denies: Syncope, Dizziness, Lightheaded Respiratory: Short of breath. denies: Cough Gastrointestinal: denies: Abdominal pain, Diarrhea, Nausea, Vomiting Musculoskeletal: No symptoms reported Skin: No symptoms reported Hematologic/Lymphatic: No symptoms reported Neurological/Psychological: No symptoms reported -: Yes All other systems reviewed and negative Physical Exam - Vital signs Vitals: Temp Pulse Resp BP Pulse Ox 98.7 F 83 18 162/96 H 97 05/30/19 15:43 05/30/19 15:43 05/30/19 15:43 05/30/19 15:43 05/30/19 15:43 Interpretation: Hypertensive - General General appearance: Appears well, Alert Notes: cachetic male with temporal wasting. Looks older than stated age. - HEENT Head: Normocephalic, Atraumatic Eyes: Normal Pupils: PERRL - Respiratory Respiratory status: No respiratory distress. No: Tachypnea, Tripod position Chest status: Nontender, Prolonged expirations. No: Accessory muscle use Breath sounds: Decreased air movement, Wheezing. No: Nonproductive cough, Productive cough, Rhonchi, Stridor Chest palpation: Normal - Cardiovascular Rhythm: Regular Heart sounds: Normal auscultation Murmur: No Notes: there is bilateral leg edema with Right more swollen than left - Abdominal Inspection: Normal Distension: No distension Bowel sounds: Normal Tenderness: Nontender Organomegaly: No organomegaly - Back Back: Normal, Nontender - Neurological Neuro grossly intact: Yes Cognition: Normal Orientation: AAOx4 Augusto Coma Scale Eye Opening: Spontaneous [place] Coma Scale Verbal: Oriented [place] Coma Scale Motor: Obeys Commands [place] Coma Scale Total: 15 Speech: Normal Cranial nerves: Normal Cerebellar coordination: Normal Motor strength normal: LUE, RUE, LLE, RLE 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 No: Pronator drift Sensory: Normal - Psychological Associated symptoms: Normal affect, Normal mood - Skin Skin Temperature: Warm Skin Moisture: Dry Skin Color: Normal Course - Re-evaluation Re-evalutation: 05/30/19 21:30 patient resting on stretcher. O2 ranging from 88-91 both while sleeping and while awake. He has been urinating quite a bit since Lasix. States he only feels minimally better after Lasix. Auscultation reveals improved wheezing. Attempted to ambulate patient. He becomes acutely short of breath and his O2 sats dropped down to 85%. We will order another 20 mg of Lasix and another breathing treatment. And admit the patient. Discussed the patient with Dr. Link ER attending and he agrees with the plan for admission. Spoke with Dr. Camarena who is covering for Dr. Contreras. He agrees with plan for admission and would like for the patient to go to the [facility]. He is aware of Lasix given as well as CTA as well as chest pain troponins and BNP. Impression: Acute on chronic CHF with hypoxia. Minimally improved after lasix. Will admit to the hospitalist for further management and treatment. Patient agrees with the plan. - Vital Signs Vital signs: Temp Pulse Resp BP Pulse Ox 98.7 F 83 20 155/82 H 98 05/30/19 15:43 05/30/19 15:43 05/30/19 23:01 05/30/19 23:01 05/30/19 23:54 - Laboratory Result Diagrams: 05/30/19 16:40 05/30/19 20:35 Laboratory results interpreted by me: 05/30/19 05/30/19 05/30/19 16:40 16:40 16:40 RBC 3.84 L Hgb 12.6 L Hct 37.2 L RDW 14.5 H Potassium 3.5 L Glucose NT-Pro-B Natriuret Pep 51324 H 05/30/19 20:35 RBC Hgb Hct RDW Potassium 3.5 L Glucose 174 H NT-Pro-B Natriuret Pep - Diagnostic Test Radiology reviewed: Image reviewed, Reports reviewed - EKG Interpretation by Me EKG shows normal: Sinus rhythm Rate: Normal Rhythm: NSR [place]/QRS: LBBB When compared to previous EKG there are: No significant change Additional EKG results interpreted by me: 05/30/19 NO STEMI, LBBB that is not unchanged from prior -- no significant changes from prior on 01/20/2019 Discharge - Discharge Clinical Impression: Hypoxia Congestive heart failure Qualifiers: Heart failure type: unspecified Heart failure chronicity: acute on chronic Qualified Code(s): I50.9 - Heart failure, unspecified Condition: Stable Disposition: ADMITTED INPATIENT Admitting Provider: Diane Unit Admitted: [facility]
--- NOTE | 2019-05-30 16:38 | RADIOLOGY REPORT (SQ) ---
EXAM DESCRIPTION: CHEST 2 VIEWS COMPLETED DATE/TIME: 05/30/2019 4:22 pm REASON FOR STUDY: cough, SOB COMPARISON: 01/20/2019 EXAM PARAMETERS: NUMBER OF VIEWS: two views TECHNIQUE: Digital Frontal and Lateral radiographic views of the chest acquired. RADIATION DOSE: NA LIMITATIONS: none FINDINGS: LUNGS AND PLEURA: The lung brooks are hyperexpanded. There is bilateral interstitial airs pace disease and small pleural effusions. Findings have increased from prior study. MEDIASTINUM AND HILAR STRUCTURES: No masses or contour abnormalities. HEART AND VASCULAR STRUCTURES: Heart is enlarged. There is central vascular prominence. BONES: No acute findings. HARDWARE: Sternotomy wires are in place. OTHER: No other significant finding. IMPRESSION: Findings are consistent with interstitial edema in the setting of COPD. Small associate d effusions. TECHNICAL DOCUMENTATION: JOB ID: [id number] [employer])- All Rights Reserved Reading location - IP/workstation name: [email or web address]
[2019-05-30 16:55] LABS: ABSOLUTE EOSINOPHILS # (AUTO) 0.1 10^3/uL (0.0-0.6); ABSOLUTE LYMPHOCYTES (AUTO) 1.4 10^3/uL (0.5-4.7); ABSOLUTE MONOCYTES (AUTO) 0.4 10^3/uL (0.1-1.4); ABSOLUTE NEUT (AUTO) 3.8 10^3/uL (1.7-8.2); BASOPHILS % (AUTO) 0.5 % (0-2); EOSINOPHILS % (AUTO) 1.4 % (0-6); HEMATOCRIT 37.2 % (37.9-51.0); HEMOGLOBIN 12.6 g/dL (13.5-17.0); LYMPHOCYTES % (AUTO) 23.9 % (13-45); MEAN CORPUSCULAR HEMOGLOBIN 32.9 pg (27.0-33.4); MEAN CORPUSCULAR VOLUME 97 fl (80-97); MONOCYTES % (AUTO) 7.8 % (3-13); PLATELET COUNT 186 10^3/uL (150-450); RED BLOOD COUNT 3.84 10^6/uL (4.35-5.55); RED CELL DISTRIBUTION WIDTH 14.5 % (11.5-14.0); SEGMENTED NEUTROPHILS % (AUTO) 66.4 % (42-78); TOTAL CELLS COUNTED % (AUTO) 100 %; WHITE BLOOD COUNT 5.7 10^3/uL (4.0-10.5)
[2019-05-30 17:02] LABS: INTERNATIONAL RATION (INR) 1.11; PROTHROMBIN TIME 14.3 SEC (11.4-15.4)
[2019-05-30 17:03] LABS: PARTIAL THROMBOPLASTIN TIME 32.3 SEC (23.5-35.8)
[2019-05-30] MEDS ORDERED: METHYLPREDNISOLONE INJ 125 MG/2 ML SDV IV ONE (17:07)
[2019-05-30] MEDS ORDERED: IPRATROPIUM/ALBUTEROL 0.5-2.5 MG/3 ML AMPUL NEB ONE ×2 (17:07→22:09)
[2019-05-30] MEDS ORDERED: ASPIRIN 81 MG TABLET, CHEWABLE PO ONE (17:23)
[2019-05-30 17:27] LABS: ALBUMIN 3.9 g/dL (3.5-5.0); ALKALINE PHOSPHATASE 91 U/L (38-126); ANION GAP 9 (5-19); ASPARTATE AMINO TRANSFERASE 21 U/L (17-59); BILIRUBIN,DIRECT 0.3 mg/dL (0.0-0.4); BILIRUBIN,TOTAL 0.8 mg/dL (0.2-1.3); BLOOD UREA NITROGEN 15 mg/dL (7-20); CALCIUM 9.1 mg/dL (8.4-10.2); CARBON DIOXIDE 27 mmol/L (22-30); CHLORIDE 104 mmol/L (98-107); GLUCOSE 85 mg/dL (75-110); POTASSIUM 3.5 mmol/L (3.6-5.0); TOTAL PROTEIN 7.1 g/dL (6.3-8.2)
[2019-05-30 17:39] LABS: TROPONIN I 0.045 ng/mL
[2019-05-30] MEDS ORDERED: FUROSEMIDE INJ/PF 40 MG/4 ML SDV IV ONE (18:03)
--- NOTE | 2019-05-30 20:07 | RADIOLOGY REPORT (SQ) ---
EXAM DESCRIPTION: CTA CHEST COMPLETED DATE/TIME: 05/30/2019 7:31 pm REASON FOR STUDY: unilateral leg swelling, exertional dyspnea, CP COMPARISON: None. TECHNIQUE: CT scan of the chest performed using helical scanning technique with dynamic intravenous contrast injection. Images reviewed with lung, soft tissue and bone windows. Reconstructed coronal and sagittal MPR images reviewed. Additional 3 dimensional post-processing performed to develop Maximal Intensity Projection images (PA P). All images stored on PACS. All CT scanners at this facility use dose modulation, iterative reconstruction, and/or weight based d osing when appropriate to reduce radiation dose to as low as reasonably achievable (ALARA). [facility]: Dose Right [facility]: CareDose [facility]: Dose Right [facility]: Teradose 4D [facility]: Snapette CONTRAST TYPE AND DOSE: contrast/concentration: Isovue 350.00 mg/ml; Total Contrast Delivered: 71.0 ml; Total Saline Delivered: 80.0 ml 71 mL Isovue 350- low osmolar. Contrast bolus optimized for the pulmonary arteries. Not diagnostic for the aorta. RENAL FUNCTION: BUN 15, creatinine 0.7 RADIATION DOSE: CT Rad equipment meets quality standard of care and radiation dose reduction techniq ues were employed. CTDIvol: 13.2 - 14.3 mGy. DLP: 555 mGy-cm. . LIMITATIONS: None. FINDINGS: LUNGS AND PLEURA: Severe diffuse emphysema. Interstitial thickening at within the lower l obes. Moderate right greater than left pleural effusions with mild adjacent compressive atelectasis. No pneumothorax. Mild diffuse cylindrical bronchiectasis and bronchial wall thickening. AORTA AND GREAT VESSELS: No aneurysm. Contrast bolus not optimized for the aorta. HEART: Postsurgical changes of CABG. No pericardial effusion. PULMONARY ARTERIES: No emboli visualized in the main pulmonary arteries or the segmental branches. HILAR AND MEDIASTINAL STRUCTURES: No identified masses or abnormal nodes. HARDWARE: None in the chest. UPPER ABDOMEN: No significant findings. Limited exam. THYROID AND OTHER SOFT TISSUES: No masses. No adenopathy. BONES: Median sternotomy. Degenerate changes of the spine. 3D MIPS: Confirm above findings. OTHER: No other significant finding. IMPRESSION: No pulmonary embolism. Severe COPD. Moderate right greater than left pleural effusions. Bilateral lower lobe interstitial thickening suggestive of pulmonary edema. COMMENT: Quality ID # [id number]: Final reports with documentation of one or more dose reduction techniques (e.g., Automated exposure control, adjustment of the mA and/or kV according to patient size, use of iterative reconstruction technique) TECHNICAL DOCUMENTATION: JOB ID: [id number] [employer]- All Rights Reserved Reading location - IP/workstation name: [email or web address]
[2019-05-30] MEDS ORDERED: IPRATROPIUM/ALBUTEROL 0.5-2.5 MG/3 ML AMPUL NEB PRN (22:16)
[2019-05-30] MEDS: FUROSEMIDE INJ/PF 20 MG/2 ML SDV IV ONE ×2 (22:42→22:46)
[2019-05-30] MEDS ORDERED: FAMOTIDINE 20 MG TABLET PO ONE (22:45)
[2019-05-30] MEDS ORDERED: POTASSIUM CHLORIDE 10 MEQ CAPSULE.ER PO ONE (22:47)
[2019-05-30] MEDS ORDERED: CEFTRIAXONE 1 GM/D5W RTU 1 GM/50 ML RTUPB IV ONE (23:00)
[2019-05-30 23:13] LABS: ANION GAP 13 (5-19); BLOOD UREA NITROGEN 16 mg/dL (7-20); CALCIUM 9.3 mg/dL (8.4-10.2); CARBON DIOXIDE 26 mmol/L (22-30); CHLORIDE 101 mmol/L (98-107); CREATINE KINASE 104 U/L (55-170); GLUCOSE 174 mg/dL (75-110); POTASSIUM 3.5 mmol/L (3.6-5.0)
[2019-05-30 23:25] LABS: CREATINE KINASE MB 2.6 ng/mL (<4.55); TROPONIN I 0.036 ng/mL
[2019-05-31] MEDS ORDERED: METHADONE HCL 10 MG TABLET PO ONE (01:15)
[2019-05-31] MEDS ORDERED: IPRATROPIUM/ALBUTEROL 0.5-2.5 MG/3 ML AMPUL NEB SCH ×2 (02:00→08:00)
[2019-05-31 03:04] LABS: CREATINE KINASE MB 2.03 ng/mL (<4.55); TROPONIN I 0.022 ng/mL
[2019-05-31] MEDS: IPRATROPIUM/ALBUTEROL 0.5-2.5 MG/3 ML AMPUL NEB SCH ×5 (04:05→20:13)
[2019-05-31] MEDS ORDERED: METHYLPREDNISOLONE INJ 40 MG/1 ML SDV IV SCH ×2 (06:00)
[2019-05-31] MEDS ORDERED: FUROSEMIDE INJ/PF 20 MG/2 ML SDV IV SCH ×2 (06:00)
[2019-05-31 09:35] LABS: ABSOLUTE LYMPHOCYTES (AUTO) 0.5 10^3/uL (0.5-4.7); ABSOLUTE MONOCYTES (AUTO) 0.1 10^3/uL (0.1-1.4); ABSOLUTE NEUT (AUTO) 4.7 10^3/uL (1.7-8.2); RED CELL DISTRIBUTION WIDTH 14.2 % (11.5-14.0); TOTAL CELLS COUNTED % (AUTO) 100 %; WHITE BLOOD COUNT 5.3 10^3/uL (4.0-10.5)
[2019-05-31 09:42] LABS: BASOPHILS % (AUTO) 0.1 % (0-2); HEMATOCRIT 41.6 % (37.9-51.0); HEMOGLOBIN 14.1 g/dL (13.5-17.0); LYMPHOCYTES % (AUTO) 9.3 % (13-45); MEAN CORPUSCULAR HEMOGLOBIN 32.9 pg (27.0-33.4); MEAN CORPUSCULAR HGB CONC 33.9 g/dL (32.0-36.0); MEAN CORPUSCULAR VOLUME 97 fl (80-97); MONOCYTES % (AUTO) 1.1 % (3-13); PLATELET COUNT 214 10^3/uL (150-450); RED BLOOD COUNT 4.28 10^6/uL (4.35-5.55); SEGMENTED NEUTROPHILS % (AUTO) 89.5 % (42-78)
[2019-05-31 09:58] LABS: CREATINE KINASE MB 2.3 ng/mL (<4.55); TROPONIN I 0.016 ng/mL
[2019-05-31] MEDS: DOCUSATE SODIUM 100 MG CAPSULE PO SCH ×2 (10:30→19:01)
[2019-05-31] MEDS: METHADONE HCL 10 MG TABLET PO SCH ×2 (10:30→19:01)
[2019-05-31] MEDS: ENOXAPARIN SODIUM INJ 40 MG/0.4 ML DISP.SYRIN SUBCUT SCH (10:31)
[2019-05-31] MEDS: FAMOTIDINE 20 MG TABLET PO SCH ×2 (10:31→21:19)
--- NOTE | 2019-05-31 10:50 | PDOC H&P ---
History of Present Illness Admission Date/PCP: 05/30/19 22:22 NIKKI BRANDY Patient complains of: Shortness of the breath History of Present Illness: REMI DICKSON is a 68 year old male This is a 68-year-old f male with the significant history of the COPD with the 50-year of the smoking history of the coronary artery disease status post bypass history of the hypertension's history of the chronic pain syndromes currently on a methadone came to the emergency department complaining of a cough congestion and shortness of the breath for the last 5 days According to the patient's he is unable to breathe in the emergency department patient was hypoxic requiring oxygen In the emergency department patient's underwent for the CT scan of the chest to rule out any pulmonary embolism because of the hypoxia and the chest pain which is negative for any PE Patient's BNP was elevated Patient's received IV Lasix and IV steroid and nebulizer treatments Recent CT scans also severe COPD moderate right pleural effusions suggestive pulmonary edema When I saw the patient on the floor patients feel like a new person Patient's denied any chest pain to than any shortness of the breath No leg swelling Patient's used to see a cardiology at [facility] saw the last year I believe Patients also see a pain management currently taking the chronic pain medications Past Medical History Cardiac Medical History: Reports: Coronary Artery Disease, Myocardial Infarction - 2 [place], Hypertension Pulmonary Medical History: Reports: Chronic Obstructive Pulmonary Disease (COPD) GI Medical History: Reports: Gastroesophageal Reflux Disease Musculoskeltal Medical History: Reports: Arthritis Psychiatric Medical History: Reports: Depression Past Surgical History Past Surgical History: Reports: Coronary Artery Bypass Graft, Orthopedic Surgery - left thumb Social History Smoking Status: Current Every Day Smoker Cigarettes Packs Per Day: 0.5 Electronic Cigarette use?: No Number of Years Smokin Frequency of Alcohol Use: None Hx Recreational Drug Use: No Drugs: None Hx Prescription Drug Abuse: No - Advance Directive Resuscitation Status: Full Code Family History Family History: Reviewed & Not Pertinent, CAD, Hypertension Parental Family History Reviewed: Yes Children Family History Reviewed: Yes Sibling(s) Family History Reviewed.: Yes Medication/Allergy Home Medications: Atorvastatin Calcium [Lipitor 80 mg Tablet] 80 mg PO QHS 05/31/19 Carvedilol [Coreg 3.125 mg Tablet] 3.125 mg PO Q12 05/31/19 Furosemide [Lasix 20 mg Tablet] 20 mg PO DAILYP PRN 05/31/19 Isosorbide Mononitrate [Imdur 30 mg Tablet.er] 30 mg PO DAILY 05/31/19 Lisinopril [Prinivil 40 mg Tablet] 40 mg PO DAILY 05/31/19 Methadone HCl [Dolophine 10 mg Tablet] 10 mg PO Q8HP PRN 05/31/19 Omeprazole 20 mg PO DAILY 05/31/19 Allergies/Adverse Reactions: No Known Allergies Allergy (Verified 05/30/19 19:12) Review of Systems Constitutional: ABSENT: chills, fever(s), headache(s), weight gain, weight loss Eyes: ABSENT: visual disturbances Ears: ABSENT: hearing changes Cardiovascular: PRESENT: chest pain, dyspnea on exertion. ABSENT: edema, orthropnea, palpitations Respiratory: PRESENT: cough, dyspnea. ABSENT: hemoptysis Gastrointestinal: ABSENT: abdominal pain, constipation, diarrhea, hematemesis, hematochezia, nausea, vomiting Genitourinary: ABSENT: dysuria, hematuria Musculoskeletal: ABSENT: joint swelling Integumentary: ABSENT: rash, wounds Neurological: ABSENT: abnormal gait, abnormal speech, confusion, dizziness, focal weakness, syncope Psychiatric: ABSENT: anxiety, depression, homidical ideation, suicidal ideation Endocrine: ABSENT: cold intolerance, heat intolerance, menstrual abnormalities, polydipsia, polyuria Hematologic/Lymphatic: ABSENT: easy bleeding, easy bruising, lymphadenopathy Physical Exam Vital Signs: Temp Pulse Resp BP Pulse Ox 97.6 F 62 16 169/75 H 99 05/31/19 07:36 05/31/19 07:45 05/31/19 07:45 05/31/19 07:36 05/31/19 07:45 Intake & Output 05/30/19 05/31/19 06/01/19 06:59 06:59 06:59 Intake Total 150 Output Total 1600 Balance -1450 Weight 47.9 kg General appearance: PRESENT: no acute distress, well-developed, well-nourished Head exam: PRESENT: atraumatic, normocephalic Eye exam: PRESENT: conjunctiva pink, EOMI, PERRLA. ABSENT: scleral icterus Ear exam: PRESENT: normal external ear exam Mouth exam: PRESENT: moist, tongue midline Neck exam: PRESENT: full ROM. ABSENT: carotid bruit, JVD, lymphadenopathy, thyromegaly Respiratory exam: PRESENT: decreased breath sounds Cardiovascular exam: PRESENT: RRR. ABSENT: diastolic murmur, rubs, systolic murmur Pulses: PRESENT: normal dorsalis pedis pul, +2 pedal pulses bilateral Vascular exam: PRESENT: normal capillary refill GI/Abdominal exam: PRESENT: normal bowel sounds, soft. ABSENT: distended, guarding, mass, organolmegaly, rebound, tenderness Rectal exam: PRESENT: deferred Musculoskeletal exam: PRESENT: ambulatory Neurological exam: PRESENT: alert, awake, oriented to person, oriented to place, oriented to time, oriented to situation, CN II-XII grossly intact. ABSENT: motor sensory deficit Psychiatric exam: PRESENT: appropriate affect, normal mood. ABSENT: homicidal ideation, suicidal ideation Skin exam: PRESENT: dry, intact, warm. ABSENT: cyanosis, rash Results Laboratory Results: 05/31/19 09:04 05/30/19 20:35 05/30/19 05/30/19 05/30/19 16:40 16:40 20:35 WBC 5.7 RBC 3.84 L Hgb 12.6 L Hct 37.2 L MCV 97 MCH 32.9 MCHC 34.0 RDW 14.5 H Plt Count 186 Seg Neutrophils % 66.4 Sodium 139.9 139.7 Potassium 3.5 L 3.5 L Chloride 104 101 Carbon Dioxide 27 26 Anion Gap 9 13 BUN 15 16 Creatinine 0.69 0.76 Est GFR ( Amer) > 60 > 60 Glucose 85 174 H Calcium 9.1 9.3 Magnesium 1.9 Total Bilirubin 0.8 AST 21 Alkaline Phosphatase 91 Total Protein 7.1 Albumin 3.9 05/31/19 05/31/19 02:18 09:04 WBC 5.3 RBC 4.28 L Hgb 14.1 Hct 41.6 MCV 97 MCH 32.9 MCHC 33.9 RDW 14.2 H Plt Count 214 Seg Neutrophils % 89.5 H Sodium Potassium Chloride Carbon Dioxide Anion Gap BUN Creatinine Est GFR ( Amer) Glucose Calcium Magnesium 1.7 Total Bilirubin AST Alkaline Phosphatase Total Protein Albumin 05/30/19 05/30/19 05/30/19 16:40 20:28 20:35 Creatine Kinase 104 CK-MB (CK-2) Troponin I 0.045 0.037 NT-Pro-B Natriuret Pep [id number] H 05/30/19 05/31/19 05/31/19 20:35 02:18 02:18 Creatine Kinase 81 CK-MB (CK-2) 2.60 2.03 Troponin I 0.036 0.022 NT-Pro-B Natriuret Pep 05/31/19 05/31/19 09:04 09:04 Creatine Kinase 100 CK-MB (CK-2) 2.30 Troponin I 0.016 NT-Pro-B Natriuret Pep Impressions: Chest X-Ray 05/30/19 16:06 IMPRESSION: Findings are consistent with interstitial edema in the setting of COPD. Small associated effusions. Chest/Abdomen CTA 05/30/19 18:04 IMPRESSION: No pulmonary embolism. Severe COPD. Moderate right greater than left pleural effusions. Bilateral lower lobe interstitial thickening suggestive of pulmonary edema. Assessment & Plan - Diagnosis (1) COPD with acute exacerbation Is this a current diagnosis for this admission?: Yes Plan: The patient on the respiratory treatments and the steroid (2) Congestive heart failure Qualifiers: Heart failure type: diastolic Heart failure chronicity: unspecified Qualified Code(s): I50.30 - Unspecified diastolic (congestive) heart failure Is this a current diagnosis for this admission?: Yes Plan: ~Cardiology for further evaluations probably need echocardiogram (3) Coronary artery disease Qualifiers: Coronary Disease-Associated Artery/Lesion type: bypass graft Associated angina: without angina Is this a current diagnosis for this admission?: Yes Plan: Rule out acute coronary syndromes we will get the medical record from [facility] cardiology (4) Hypertension Qualifiers: Hypertension type: essential hypertension Qualified Code(s): I10 - Essential (primary) hypertension Is this a current diagnosis for this admission?: Yes (5) Contact with and (suspected) exposure to environmental tobacco smoke (acute) (chronic) Is this a current diagnosis for this admission?: Yes Plan: Cussed with the patient about the smoking counseling (6) Chronic pain syndrome Is this a current diagnosis for this admission?: Yes Plan: Use the pain medications (7) Hypoxia Is this a current diagnosis for this admission?: Yes Plan: ABG - Time Time Spent: 50 to 70 Minutes Critical Time spent with patient: 25-34 minutes Smoking Cessation Education: over 10 minutes Medications reviewed and adjusted accordingly: Yes Anticipated discharge: Home with Homehealth Within: Other - Inpatient Certification Based on my medical assessment, after consideration of the patient's comorbidities, presenting symptoms, or acuity I expect that the services needed warrant INPATIENT care.: Yes I certify that my determination is in accordance with my understanding of Medicare's requirements for reasonable and necessary INPATIENT services [42 CFR 412.3e].: Yes Medical Necessity: Significant Comorbidiites Make Outpatient Treatment Too Risky, Need Close Monitoring Due to Risk of Patient Decompensation, Need for IV Antibiotics Post Hospital Care: D/C Operations Officer Trust Department Documentation - Plan Summary Plan Summary: The MD orders
[2019-05-31 11:08] LABS: ANION GAP 16 (5-19); BLOOD UREA NITROGEN 18 mg/dL (7-20); CARBON DIOXIDE 27 mmol/L (22-30); CHLORIDE 97 mmol/L (98-107); GLUCOSE 346 mg/dL (75-110)
[2019-05-31 11:19] LABS: POTASSIUM 4.8 mmol/L (3.6-5.0)
[2019-05-31 12:28] LABS: ARTERIAL BLOOD BASE EXCESS 0.6 mmol/L; ARTERIAL BLOOD H2CO3 1.04 mmol/L (1.05-1.35); ARTERIAL BLOOD HCO3 23.9 mmol/L (20-24); ARTERIAL BLOOD O2 SATURATION 98.2 % (94-98); ARTERIAL BLOOD PCO2 34.5 mmHg (35-45); ARTERIAL BLOOD PH 7.46 (7.35-7.45); ARTERIAL BLOOD PO2 108.5 mmHg (80-100)
[2019-05-31 12:29] LABS: ARTERIAL BLOOD FIO2 26%
[2019-05-31] MEDS: METHYLPREDNISOLONE INJ 40 MG/1 ML SDV IV SCH ×2 (13:40→21:18)
[2019-05-31] MEDS: FUROSEMIDE INJ/PF 20 MG/2 ML SDV IV SCH (19:02)
--- NOTE | 2019-05-31 19:28 | PDOC CONSULTATION ---
Consultation-Blank Consultation: CARDIOLOGY CONSULTATION by Dr. Kyra Talavera on 05/31/2019. Patient seen at 12 noon. 60 minutes spent on this patient with more than 50% of time spent in direct patient care. REASON FOR CONSULTATION: Patient with history of coronary artery disease, history of coronary bypass graft surgery admitted with shortness of breath and findings of congestive heart failure and acute exacerbation of COPD. CONSULT REQUESTING PHYSICIAN: Dr. Camarena. HISTORY PRESENT ILLNESS: Patient is a 68-year-old male with known history of COPD, who continues to smoke, coronary artery disease, history of MIs x2 in the past and history of coronary artery bypass graft surgery a year ago and history of chronic pain on methadone admitted with history of 4 to 5 days of progressively increasing shortness of breath with wheezing and cough with scanty sputum production, the color which ED does not know. He also has been having leg edema. PND and orthopnea. There is no chest pain or discomfort. There is no palpitations, dizziness or near syncope or syncope. The patient's chest x- ray is consistent with congestive heart failure. The patient denies any prior history of congestive heart failure. He states that his leg edema is much improved after his medications. Also on admission his potassium was slightly low and this has been corrected and potassium now is normal. The patient denies any history of LV dysfunction. The patient is not a very good historian. Records from [facility] has been requested. 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 Past Medical History Cardiac Medical History: Reports: Coronary Artery Disease, Myocardial Infarction - 2 [place], Hypertension. Denies prior history of congestive heart failure. There is no history of cardiac arrhythmia or syncope. Pulmonary Medical History: Reports: Chronic Obstructive Pulmonary Disease (COPD). No history of PE. No history of sleep apnea. GI Medical History: Reports: Gastroesophageal Reflux Disease Musculoskeltal Medical History: Reports: Arthritis. He complains of severe arthritis of his back and also of multiple joints. Hence is on chronic pain medication including methadone. Psychiatric Medical History: Reports: Depression ENDOCRINE: There is no history of diabetes mellitus or thyroid disease. GENITOURINARY: No history of chronic kidney disease. No symptoms of enlarged prostate. 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 No history of headaches migraines or seizures. Past Surgical History Past Surgical History: Reports: Coronary Artery Bypass Graft, Orthopedic Surgery - left thumb Social History Smoking Status: Current Every Day Smoker Cigarettes Packs Per Day: 0.5 Electronic Cigarette use?: No Number of Years Smokin Frequency of Alcohol Use: None Hx Recreational Drug Use: No Drugs: None Hx Prescription Drug Abuse: No - Advance Directive Resuscitation Status: Full Code. The patient's son who lives with with the patient is the patient's surrogate healthcare decision maker. Family History Family History: Reviewed & Not Pertinent, CAD, Hypertension Medication/Allergy Home Medications: Atorvastatin Calcium [Lipitor 80 mg Tablet] 80 mg PO QHS 05/31/19 Carvedilol [Coreg 3.125 mg Tablet] 3.125 mg PO Q12 05/31/19 Furosemide [Lasix 20 mg Tablet] 20 mg PO DAILYP PRN 05/31/19 Isosorbide Mononitrate [Imdur 30 mg Tablet.er] 30 mg PO DAILY 05/31/19 Lisinopril [Prinivil 40 mg Tablet] 40 mg PO DAILY 05/31/19 Methadone HCl [Dolophine 10 mg Tablet] 10 mg PO Q8HP PRN 05/31/19 Omeprazole 20 mg PO DAILY 05/31/19 Allergies/Adverse Reactions: No Known Allergies Allergy (Verified 05/30/19 19:12) Review of Systems Constitutional: ABSENT: chills, fever(s), headache(s), weight gain, weight loss Eyes: ABSENT: visual disturbances Ears: ABSENT: hearing changes Cardiovascular: PRESENT: chest pain, dyspnea on exertion. ABSENT: edema, orthropnea, palpitations Respiratory: PRESENT: cough, dyspnea. ABSENT: hemoptysis Gastrointestinal: ABSENT: abdominal pain, constipation, diarrhea, hematemesis, hematochezia, nausea, vomiting Genitourinary: ABSENT: dysuria, hematuria Musculoskeletal: ABSENT: joint swelling Integumentary: ABSENT: rash, wounds Neurological: ABSENT: abnormal gait, abnormal speech, confusion, dizziness, focal weakness, syncope Psychiatric: ABSENT: anxiety, depression, homidical ideation, suicidal ideation Endocrine: ABSENT: cold intolerance, heat intolerance, menstrual abnormalities, polydipsia, polyuria Hematologic/Lymphatic: ABSENT: easy bleeding, easy bruising, lymphadenopathy Current Medications Generic Name Dose Route Start Last Admin Trade Name Freq PRN Reason Stop Dose Admin Acetaminophen 650 mg 05/30/19 22:16 Tylenol 325 Mg Tablet PO 06/29/19 22:15 Q4HP PRN FOR PAIN OR TEMP Albuterol/Ipratropium 3 ml 05/30/19 22:16 Duoneb 3 Ml Ampul NEB 06/29/19 22:15 RTQ2HP PRN SHORTNESS OF BREATH Albuterol/Ipratropium 3 ml 05/31/19 04:00 05/31/19 16:15 Duoneb 3 Ml Ampul NEB 06/30/19 03:59 3 ml RTQ4 SAVITA Administration Docusate Sodium 100 mg 05/31/19 10:00 05/31/19 19:01 Colace 100 Mg Capsule PO 06/30/19 09:59 100 mg BID SAVITA Administration Enoxaparin Sodium 40 mg 05/31/19 10:00 05/31/19 10:31 Lovenox Inj 40 Mg/0.4 Ml Disp.Syrin SUBCUT 06/30/19 09:59 40 mg DAILY SAVITA Administration Famotidine 20 mg 05/31/19 10:00 05/31/19 10:31 Pepcid 20 Mg Tablet PO 06/30/19 09:59 20 mg Q12 SAVITA Administration Furosemide 20 mg 05/31/19 18:00 05/31/19 19:02 Lasix Inj/Pf 20 Mg/2 Ml Sdv IV 06/30/19 17:59 20 mg Q12A SAVITA Administration Ceftriaxone Sodium/Dextrose 1 gm in 50 mls @ 100 mls/hr 05/31/19 22:00 Rocephin Rtu 1 Gm/D5w 50 Ml Premix IV 06/07/19 21:59 QHS SAVITA Methadone HCl 10 mg 05/31/19 10:00 05/31/19 19:01 Dolophine 10 Mg Tablet PO 06/07/19 09:59 10 mg Q8A SAVITA Administration Methylprednisolone Sodium Succinate 20 mg 05/31/19 14:00 05/31/19 13:40 Solu-Medrol Inj/Pf 40 Mg/1 Ml Sdv IV 06/30/19 13:59 20 mg Q8 SAVITA Administration Discontinued Medications Generic Name Dose Route Start Last Admin Trade Name Freq PRN Reason Stop Dose Admin Albuterol/Ipratropium 3 ml 05/30/19 17:07 05/30/19 17:40 Duoneb 3 Ml Ampul NEB 05/30/19 17:08 3 ml NOW ONE Administration Albuterol/Ipratropium 3 ml 05/30/19 22:09 05/30/19 22:42 Duoneb 3 Ml Ampul NEB 05/30/19 22:10 3 ml NOW ONE Administration Albuterol/Ipratropium 3 ml 05/31/19 08:00 Duoneb 3 Ml Ampul NEB 06/30/19 07:59 [id number] SAVITA Albuterol/Ipratropium 3 ml 05/31/19 02:00 05/31/19 04:06 Duoneb 3 Ml Ampul NEB 06/30/19 01:59 Not Given Q4 [facility] Aspirin 324 mg 05/30/19 17:23 05/30/19 17:39 Aspirin 81 Mg Chewable Tablet PO 05/30/19 17:24 324 mg NOW ONE Administration Famotidine 20 mg 05/30/19 22:45 05/30/19 23:34 Pepcid 20 Mg Tablet PO 05/30/19 22:46 20 mg NOW ONE Administration Furosemide 40 mg 05/30/19 18:03 05/30/19 18:28 Lasix Inj/Pf 40 Mg/4 Ml Sdv IV 05/30/19 18:04 40 mg NOW ONE Administration Furosemide 20 mg 05/30/19 22:09 05/30/19 22:46 Lasix Inj/Pf 20 Mg/2 Ml Sdv IV 05/30/19 22:10 Not Given NOW ONE Furosemide 20 mg 05/31/19 00:00 Lasix Inj/Pf 20 Mg/2 Ml Sdv IV 06/30/19 00:00 Q6 [facility] Furosemide 20 mg 05/31/19 06:00 05/31/19 05:10 Lasix Inj/Pf 20 Mg/2 Ml Sdv IV 06/30/19 05:59 20 mg Q8 [facility] Administration Ceftriaxone Sodium/Dextrose 1 gm in 50 mls @ 100 mls/hr 05/30/19 23:00 05/31/19 01:00 Rocephin Rtu 1 Gm/D5w 50 Ml Premix IV 05/30/19 23:29 Infused NOW ONE Infusion Methadone HCl 10 mg 05/31/19 01:15 05/31/19 01:22 Dolophine 10 Mg Tablet PO 05/31/19 01:16 10 mg NOW ONE Administration Methylprednisolone Sodium Succinate 125 mg 05/30/19 17:07 05/30/19 18:03 Solu-Medrol Inj/Pf 125 Mg/2 Ml Sdv IV 05/30/19 17:08 125 mg NOW ONE Administration Methylprednisolone Sodium Succinate 40 mg 05/31/19 06:00 Solu-Medrol Inj/Pf 40 Mg/1 Ml Sdv IV 06/30/19 05:59 Q8 SAVITA Methylprednisolone Sodium Succinate 60 mg 05/31/19 06:00 05/31/19 05:10 Solu-Medrol Inj/Pf 40 Mg/1 Ml Sdv IV 06/30/19 05:59 60 mg Q8 SAVITA Administration Potassium Chloride 40 meq 05/30/19 22:47 05/30/19 23:34 Klor-Con 10 Meq Capsule Er PO 05/30/19 22:48 40 meq NOW ONE Administration PHYSICAL EXAMINATION: The patient is a frail build and is appears to be chronically ill Selected Entries 05/31/19 11:13 Temperature 98.1 F Temperature Oral Source Pulse Rate 77 Respiratory 19 Rate Blood Pressure 160/69 H Blood Pressure 99 Mean BP Location Left Arm BP Position Sitting O2 Sat by Pulse 98 Oximetry Oxygen Delivery Room Air Method HEAD: Head is atraumatic and normocephalic. EYES: Pupils are equal round regular reactive to light accommodation. Extraocular movements are normal, there is no conjunctival pallor, and no scleral icterus. EARS: Tympanic membranes are intact external auditory canals are clear. NOSE: There is no inflammation of the nasal mucous membrane there is no deviated nasal septum. MOUTH: Mucous membranes of mouth and tongue are moist, there is no ulcers in the mouth or tongue, and no bleeding from the gums. THROAT: There is no redness of the oropharynx, no exudate seen. SKIN: There is no petechia or ecchymosis. There is no rashes or lesions. NECK: Supple. There is no JVD. Carotids are equal there is no bruit. There is no lymphadenopathy. There is no goiter. Trachea central LUNGS: There is diminished air entry and prolonged expiration. There is bilateral scattered rhonchi and faint end expiratory wheeze. There is a few fine rales of CHF in both the bases. On percussion there is hyperresonance alth ough there is no chest wall tenderness HEART: S1 and S2 are heard. S1 is of normal intensity, there is no S3 or S4 gallops. There is a systolic murmur the left sternal border and the apex. There is no rub. ABDOMEN: Normoactive bowel sounds, soft, nontender, no masses, no rebound, no guarding. There is no hepatosplenomegaly. EXTREMITIES: Femorals are slightly diminished. There is no femoral bruits. Leg pulses are diminished. There is no pedal edema. There is no DVT or cellulitis. There is no cyanosis or clubbing. There is no calf tenderness. NEUROLOGICAL the patient is awake alert oriented 3 with no focal deficits. PSYCHIATRIC: The patient judgment and insight are intact his affect is normal. Labs- All tests 24 hr 05/30/19 05/30/19 05/30/19 20:28 20:35 20:35 WBC RBC Hgb Hct MCV MCH MCHC RDW Plt Count Lymph % (Auto) Garza % (Auto) Eos % (Auto) Baso % (Auto) Absolute Neuts (auto) Absolute Lymphs (auto) Absolute Monos (auto) Absolute Eos (auto) Absolute Basos (auto) Seg Neutrophils % Carbonic Acid HCO3/H2CO3 Ratio ABG pH ABG pCO2 ABG pO2 ABG HCO3 ABG Total CO2 ABG O2 Saturation ABG Base Excess FiO2 Sodium 139.7 Potassium 3.5 L Chloride 101 Carbon Dioxide 26 Anion Gap 13 BUN 16 Creatinine 0.76 Est GFR ( Amer) > 60 Est GFR (MDRD) Non-Af > 60 Glucose 174 H Calcium 9.3 Magnesium Creatine Kinase 104 CK-MB (CK-2) 2.60 Troponin I 0.037 0.036 05/31/19 05/31/19 05/31/19 02:18 02:18 09:04 WBC 5.3 RBC 4.28 L Hgb 14.1 Hct 41.6 MCV 97 MCH 32.9 MCHC 33.9 RDW 14.2 H Plt Count 214 Lymph % (Auto) 9.3 L Garza % (Auto) 1.1 L Eos % (Auto) 0.0 Baso % (Auto) 0.1 Absolute Neuts (auto) 4.7 Absolute Lymphs (auto) 0.5 Absolute Monos (auto) 0.1 Absolute Eos (auto) 0.0 Absolute Basos (auto) 0.0 Seg Neutrophils % 89.5 H Carbonic Acid HCO3/H2CO3 Ratio ABG pH ABG pCO2 ABG pO2 ABG HCO3 ABG Total CO2 ABG O2 Saturation ABG Base Excess FiO2 Sodium Potassium Chloride Carbon Dioxide Anion Gap BUN Creatinine Est GFR ( Amer) Est GFR (MDRD) Non-Af Glucose Calcium Magnesium 1.7 Creatine Kinase 81 CK-MB (CK-2) 2.03 Troponin I 0.022 05/31/19 05/31/19 05/31/19 09:04 09:04 09:04 WBC RBC Hgb Hct MCV MCH MCHC RDW Plt Count Lymph % (Auto) Garza % (Auto) Eos % (Auto) Baso % (Auto) Absolute Neuts (auto) Absolute Lymphs (auto) Absolute Monos (auto) Absolute Eos (auto) Absolute Basos (auto) Seg Neutrophils % Carbonic Acid HCO3/H2CO3 Ratio ABG pH ABG pCO2 ABG pO2 ABG HCO3 ABG Total CO2 ABG O2 Saturation ABG Base Excess FiO2 Sodium 140.1 Potassium 4.8 D Chloride 97 L Carbon Dioxide 27 Anion Gap 16 BUN 18 Creatinine 0.85 Est GFR ( Amer) > 60 Est GFR (MDRD) Non-Af > 60 Glucose 346 H Calcium 10.0 Magnesium Creatine Kinase 100 CK-MB (CK-2) 2.30 Troponin I 0.016 05/31/19 11:33 WBC RBC Hgb Hct MCV MCH MCHC RDW Plt Count Lymph % (Auto) Garza % (Auto) Eos % (Auto) Baso % (Auto) Absolute Neuts (auto) Absolute Lymphs (auto) Absolute Monos (auto) Absolute Eos (auto) Absolute Basos (auto) Seg Neutrophils % Carbonic Acid 1.04 L HCO3/H2CO3 Ratio 22:1 ABG pH 7.46 H ABG pCO2 34.5 L ABG pO2 108.5 H ABG HCO3 23.9 ABG Total CO2 25.0 ABG O2 Saturation 98.2 H ABG Base Excess 0.6 FiO2 26% Sodium Potassium Chloride Carbon Dioxide Anion Gap BUN Creatinine Est GFR ( Amer) Est GFR (MDRD) Non-Af Glucose Calcium Magnesium Creatine Kinase CK-MB (CK-2) Troponin I Chest X-Ray 05/30/19 16:06 IMPRESSION: Findings are consistent with interstitial edema in the setting of COPD. Small associated effusions. Chest/Abdomen CTA 05/30/19 18:04 IMPRESSION: No pulmonary embolism. Severe COPD. Moderate right greater than left pleural effusions. Bilateral lower lobe interstitial thickening suggestive of pulmonary edema. EKG: Sinus Rhythm. Left bundle branch block pattern. IMPRESSION/RECOMMENDATION: 1. Congestive heart failure systolic versus diastolic. Await records from [facility]. We will start the patient on lisinopril which is his home medication. Continue IV Lasix. Was the patient's wheezing and acute exacerbation of COPD resolves then would put the patient on a beta-lucia long- acting. This is especially if the patient's LV function is compromised. If no recent echo has been done in the past 6 months we will get an echocardiogram done to assess the patient's LV ejection fraction. 2. Acute exacerbation of COPD: Possible bronchitis. Recommend continue oxygen, and antibiotics, and bronchodilators. Consider steroid. 3. Hypertension: Blood pressure still elevated. Hopefully will restart the patient's home medication of lisinopril and this will bring it down. 4. Coronary artery disease: History of coronary artery bypass graft surgery. History of MIs in the past. No evidence of non-ST elevation OR this admission. The patient has no anginal symptoms. Recommend continue the patient's nitrate. 5. Left bundle branch block pattern. This is chronic. The patient's prior EKG in 2017 was reviewed and this shows left bundle branch block pattern. 6. Chronic pain syndrome. Continue methadone. 7. Tobacco abuse disorder: Tobacco cessation counseling given. 4 minutes spent on this. Ill effects of tobacco explained. Medications reviewed. Medications added and adjusted. Medical decision making is of high complexity. 60 minutes spent on this patient with more than 50% of the time spent in direct patient care. Discussed with attending physician. Will follow.
[2019-05-31] MEDS: CEFTRIAXONE 1 GM/D5W RTU 1 GM/50 ML RTUPB IV SCH (21:19)
--- NOTE | 2019-05-31 21:34 | EKG REPORT ---
SEVERITY:- ABNORMAL ECG - SINUS RHYTHM LEFT BUNDLE BRANCH BLOCK : Confirmed by: Jaycee Pineda 31-May-2019 21:34:14
[2019-06-01] MEDS: IPRATROPIUM/ALBUTEROL 0.5-2.5 MG/3 ML AMPUL NEB SCH ×6 (00:03→20:55)
[2019-06-01] MEDS: METHADONE HCL 10 MG TABLET PO SCH ×3 (01:31→17:40)
[2019-06-01] MEDS: ACETAMINOPHEN 325 MG TABLET PO PRN ×2 (01:53→22:00)
[2019-06-01 05:01] LABS: ANION GAP 10 (5-19); BLOOD UREA NITROGEN 23 mg/dL (7-20); CALCIUM 9.4 mg/dL (8.4-10.2); CARBON DIOXIDE 28 mmol/L (22-30); CHLORIDE 100 mmol/L (98-107); GLUCOSE 160 mg/dL (75-110); POTASSIUM 4.6 mmol/L (3.6-5.0)
[2019-06-01 06:09] LABS: ABSOLUTE LYMPHOCYTES (AUTO) 0.7 10^3/uL (0.5-4.7); ABSOLUTE MONOCYTES (AUTO) 0.4 10^3/uL (0.1-1.4); ABSOLUTE NEUT (AUTO) 9.9 10^3/uL (1.7-8.2); BASOPHILS % (AUTO) 0.1 % (0-2); HEMATOCRIT 34.8 % (37.9-51.0); LYMPHOCYTES % (AUTO) 6.4 % (13-45); MEAN CORPUSCULAR HEMOGLOBIN 32.9 pg (27.0-33.4); MEAN CORPUSCULAR HGB CONC 34.3 g/dL (32.0-36.0); MEAN CORPUSCULAR VOLUME 96 fl (80-97); MONOCYTES % (AUTO) 3.7 % (3-13); PLATELET COUNT 186 10^3/uL (150-450); RED BLOOD COUNT 3.62 10^6/uL (4.35-5.55); RED CELL DISTRIBUTION WIDTH 14.5 % (11.5-14.0); SEGMENTED NEUTROPHILS % (AUTO) 89.8 % (42-78); TOTAL CELLS COUNTED % (AUTO) 100 %
[2019-06-01] MEDS: METHYLPREDNISOLONE INJ 40 MG/1 ML SDV IV SCH ×3 (06:20→21:30)
[2019-06-01] MEDS: FUROSEMIDE INJ/PF 20 MG/2 ML SDV IV SCH ×3 (06:20→18:07)
[2019-06-01 06:25] LABS: HEMOGLOBIN 11.9 g/dL (13.5-17.0)
[2019-06-01] MEDS: DOCUSATE SODIUM 100 MG CAPSULE PO SCH ×2 (09:15→17:40)
[2019-06-01] MEDS: FAMOTIDINE 20 MG TABLET PO SCH ×2 (09:16→21:30)
[2019-06-01] MEDS: ENOXAPARIN SODIUM INJ 40 MG/0.4 ML DISP.SYRIN SUBCUT SCH (09:16)
--- NOTE | 2019-06-01 09:37 | PDOC PROGRESS REPORT ---
Subjective Progress Note for:: 06/01/19 Subjective:: Patient is feeling much better Patient's denied any chest pain no short of breath Patient seen by Dr. VAUGHN Reason For Visit: CONGESTIVE HEART FAILURE Physical Exam Vital Signs: Temp Pulse Resp BP Pulse Ox 98.3 F 95 18 145/65 H 99 06/01/19 07:21 06/01/19 08:10 06/01/19 08:10 06/01/19 07:21 06/01/19 08:10 Intake & Output 05/31/19 06/01/19 06/02/19 06:59 06:59 06:59 Intake Total 150 1350 Output Total 1600 Balance -1450 1350 Weight 47.9 kg 48 kg General appearance: PRESENT: no acute distress, well-developed, well-nourished Head exam: PRESENT: atraumatic, normocephalic Eye exam: PRESENT: conjunctiva pink, EOMI, PERRLA. ABSENT: scleral icterus Ear exam: PRESENT: normal external ear exam Mouth exam: PRESENT: moist, tongue midline Neck exam: PRESENT: full ROM. ABSENT: carotid bruit, JVD, lymphadenopathy, thyromegaly Respiratory exam: PRESENT: clear to auscultation cammie Cardiovascular exam: PRESENT: RRR. ABSENT: diastolic murmur, rubs, systolic murmur Pulses: PRESENT: normal dorsalis pedis pul, +2 pedal pulses bilateral Vascular exam: PRESENT: normal capillary refill GI/Abdominal exam: PRESENT: normal bowel sounds, soft. ABSENT: distended, guarding, mass, organolmegaly, rebound, tenderness Rectal exam: PRESENT: deferred Extremities exam: ABSENT: pedal edema Musculoskeletal exam: PRESENT: ambulatory Neurological exam: PRESENT: alert, awake, oriented to person, oriented to place, oriented to time, oriented to situation, CN II-XII grossly intact. ABSENT: motor sensory deficit Psychiatric exam: PRESENT: appropriate affect, normal mood. ABSENT: homicidal ideation, suicidal ideation Skin exam: PRESENT: dry, intact, warm. ABSENT: cyanosis, rash Results Laboratory Results: 06/01/19 06:03 06/01/19 04:15 05/31/19 05/31/19 05/31/19 09:04 09:04 11:33 WBC 5.3 RBC 4.28 L Hgb 14.1 Hct 41.6 MCV 97 MCH 32.9 MCHC 33.9 RDW 14.2 H Plt Count 214 Seg Neutrophils % 89.5 H Carbonic Acid 1.04 L HCO3/H2CO3 Ratio 22:1 ABG pH 7.46 H ABG pCO2 34.5 L ABG pO2 108.5 H ABG HCO3 23.9 ABG O2 Saturation 98.2 H ABG Base Excess 0.6 FiO2 26% Sodium 140.1 Potassium 4.8 D Chloride 97 L Carbon Dioxide 27 Anion Gap 16 BUN 18 Creatinine 0.85 Est GFR ( Amer) > 60 Glucose 346 H Calcium 10.0 06/01/19 06/01/19 06/01/19 04:15 04:15 06:03 WBC Cancelled 11.0 H D RBC Cancelled 3.62 L Hgb Cancelled 11.9 L D Hct Cancelled 34.8 L MCV Cancelled 96 MCH Cancelled 32.9 MCHC Cancelled 34.3 RDW Cancelled 14.5 H Plt Count Cancelled 186 Seg Neutrophils % Cancelled 89.8 H Carbonic Acid HCO3/H2CO3 Ratio ABG pH ABG pCO2 ABG pO2 ABG HCO3 ABG O2 Saturation ABG Base Excess FiO2 Sodium 138.1 Potassium 4.6 Chloride 100 Carbon Dioxide 28 Anion Gap 10 BUN 23 H Creatinine 0.64 Est GFR ( Amer) > 60 Glucose 160 H Calcium 9.4 05/30/19 05/30/19 05/30/19 16:40 20:28 20:35 Creatine Kinase 104 CK-MB (CK-2) Troponin I 0.045 0.037 NT-Pro-B Natriuret Pep 50064 H 05/30/19 05/31/19 05/31/19 20:35 02:18 02:18 Creatine Kinase 81 CK-MB (CK-2) 2.60 2.03 Troponin I 0.036 0.022 NT-Pro-B Natriuret Pep 05/31/19 05/31/19 09:04 09:04 Creatine Kinase 100 CK-MB (CK-2) 2.30 Troponin I 0.016 NT-Pro-B Natriuret Pep Impressions: Chest X-Ray 05/30/19 16:06 IMPRESSION: Findings are consistent with interstitial edema in the setting of COPD. Small associated effusions. Chest/Abdomen CTA 05/30/19 18:04 IMPRESSION: No pulmonary embolism. Severe COPD. Moderate right greater than left pleural effusions. Bilateral lo wer lobe interstitial thickening suggestive of pulmonary edema. Assessment & Plan - Diagnosis (1) COPD with acute exacerbation Is this a current diagnosis for this admission?: Yes Plan: The patient on the respiratory treatments and the steroid (2) Congestive heart failure Qualifiers: Heart failure type: diastolic Heart failure chronicity: unspecified Qualified Code(s): I50.30 - Unspecified diastolic (congestive) heart failure Is this a current diagnosis for this admission?: Yes Plan: To use the Lasix (3) Coronary artery disease Qualifiers: Coronary Disease-Associated Artery/Lesion type: bypass graft Associated angina: without angina Is this a current diagnosis for this admission?: Yes Plan: Rule out acute coronary syndromes we will get the medical record from [place] [facility] (4) Hypertension Qualifiers: Hypertension type: essential hypertension Qualified Code(s): I10 - Essential (primary) hypertension Is this a current diagnosis for this admission?: Yes (5) Contact with and (suspected) exposure to environmental tobacco smoke (acute) (chronic) Is this a current diagnosis for this admission?: Yes Plan: Cussed with the patient about the smoking counseling (6) Chronic pain syndrome Is this a current diagnosis for this admission?: Yes Plan: Use the pain medications (7) Hypoxia Is this a current diagnosis for this admission?: Yes - Time Time Spent with patient: 15-24 minutes Level of Care: IMCU Medications reviewed and adjusted accordingly: Yes Anticipated discharge: Home Within: Other - Plan Summary Plan Summary: Continues to IV antibiotic
--- NOTE | 2019-06-01 20:56 | Progress Note ---
Provider Note Provider Note: CARDIOLOGY PROGRESS NOTE by Dr. Kyra Simpson on 06/01/2019. Subjective: The patient states that shortness of breath is much improved. There is no wheezing. There is no PND orthopnea or leg edema. There is no cough or sputum production. There is no arrhythmia seen on the monitor. His records are still awaited from [place]. PHYSICAL EXAMINATION: The patient appears to be a frail build and appears to be chronically ill. Selected Entries 06/01/19 15:18 Temperature 97.9 F Temperature Oral Source Pulse Rate 74 Respiratory 18 Rate Blood Pressure 125/46 L Blood Pressure 72 Mean BP Location Right Arm BP Position Supine O2 Sat by Pulse 100 Oximetry Oxygen Delivery Room Air Method HEAD: Head is atraumatic and normocephalic. EYES: Pupils are equal round regular reactive to light accommodation. Extraocular movements are normal, there is no conjunctival pallor, and no scleral icterus. EARS: Tympanic membranes are intact external auditory canals are clear. NOSE: There is no inflammation of the nasal mucous membrane there is no deviated nasal septum. MOUTH: Mucous membranes of mouth and tongue are moist, there is no ulcers in the mouth or tongue, and no bleeding from the gums. THROAT: There is no redness of the oropharynx, no exudate seen. SKIN: There is no petechia or ecchymosis. There is no rashes or lesions. NECK: Supple. There is no JVD. Carotids are equal there is no bruit. There is no lymphadenopathy. There is no goiter. Trachea central LUNGS: There is diminished air entry and prolonged expiration. There is on today's examination no rhonchi rales or wheezing. There is no rales of CHF today. On percussion there is hyperresonance although there is no chest wall tenderness HEART: S1 and S2 are heard. S1 is of normal intensity, there is no S3 or S4 gallops. There is a systolic murmur the left sternal border and the apex. There is no rub. ABDOMEN: Normoactive bowel sounds, soft, nontender, no masses, no rebound, no guarding. There is no hepatosplenomegaly. EXTREMITIES: Femorals are slightly diminished. There is no femoral bruits. Leg pulses are diminished. There is no pedal edema. There is no DVT or cellulitis. There is no cyanosis or clubbing. There is no calf tenderness. NEUROLOGICAL the patient is awake alert oriented 3 with no focal deficits. PSYCHIATRIC: The patient judgment and insight are intact his affect is normal. Labs- All tests 24 hr 06/01/19 06/01/19 06/01/19 04:15 04:15 06:03 WBC Cancelled 11.0 H D RBC Cancelled 3.62 L Hgb Cancelled 11.9 L D Hct Cancelled 34.8 L MCV Cancelled 96 MCH Cancelled 32.9 MCHC Cancelled 34.3 RDW Cancelled 14.5 H Plt Count Cancelled 186 Lymph % (Auto) Cancelled 6.4 L [place] % (Auto) Cancelled 3.7 Eos % (Auto) Cancelled 0.0 Baso % (Auto) Cancelled 0.1 Absolute Neuts (auto) Cancelled 9.9 H Absolute Lymphs (auto) Cancelled 0.7 Absolute Monos (auto) Cancelled 0.4 Absolute Eos (auto) Cancelled 0.0 Absolute Basos (auto) Cancelled 0.0 Seg Neutrophils % Cancelled 89.8 H Platelet Estimate Cancelled Sodium 138.1 Potassium 4.6 Chloride 100 Carbon Dioxide 28 Anion Gap 10 BUN 23 H Creatinine 0.64 Est GFR ( Amer) > 60 Est GFR (MDRD) Non-Af > 60 Glucose 160 H Calcium 9.4 Slides for Path Review Cancelled Chest X-Ray 05/30/19 16:06 IMPRESSION: Findings are consistent with interstitial edema in the setting of COPD. Small associated effusions. Chest/Abdomen CTA 05/30/19 18:04 IMPRESSION: No pulmonary embolism. Severe COPD. Moderate right greater than left pleural effusions. Bilateral lower lobe interstitial thickening suggestive of pulmonary edema. IMPRESSION/RECOMMENDATION: 1. Congestive heart failure systolic versus diastolic. Await records from [facility]. We will start the patient on lisinopril which is his home medication. Continue IV Lasix. Was the patient's wheezing and acute exacerbation of COPD resolves then would put the patient on a beta-lucia long- acting. This is especially if the patient's LV function is compromised. If no recent echo has been done in the past 6 months we will get an echocardiogram done to assess the patient's LV ejection fraction. At present patient seems to be compensated and there is no evidence of CHF clinically. Will check x-ray in a.m. 2. Acute exacerbation of COPD: Possible bronchitis. Recommend continue oxygen, and antibiotics, and bronchodilators. Consider steroid. This is remarkably imp roved. 3. Hypertension: Blood pressure still elevated. Hopefully will restart the patient's home medication of lisinopril and this will bring it down. 4. Coronary artery disease: History of coronary artery bypass graft surgery. History of MIs in the past. No evidence of non-ST elevation [place] this admission. The patient has no anginal symptoms. Recommend continue the patient's nitrate. 5. Left bundle branch block pattern. This is chronic. The patient's prior EKG in 2017 was reviewed and this shows left bundle branch block pattern. 6. Chronic pain syndrome. Continue methadone. 7. Tobacco abuse disorder: Tobacco cessation counseling given. 4 minutes spent on this. Ill effects of tobacco explained. Medications reviewed. Management plan and medical regimen discussed with Dr. Camarena. Medical decision making is of moderate complexity. 40 minutes spent as patient more than 50% of time spent in direct patient care. Will follow
[2019-06-01] MEDS: CEFTRIAXONE 1 GM/D5W RTU 1 GM/50 ML RTUPB IV SCH (21:30)
--- NOTE | 2019-06-01 22:27 | RADIOLOGY REPORT (SQ) ---
XR CHEST 1 VIEW CLINICAL STATEMENT: CHF COMPARISON: 05/30/2019 FINDINGS heart is mildly enlarged. Status post median sternotomy. There is no focal lung consolidation or pleural effusion. No evidence of pulmonary edema or pneumothorax. IMPRESSION: No acute cardiopulmonary disease. Resolution of previously seen evidence for CHF and bilateral pleural effusions.
[2019-06-02] MEDS: IPRATROPIUM/ALBUTEROL 0.5-2.5 MG/3 ML AMPUL NEB SCH ×6 (00:57→20:01)
[2019-06-02] MEDS: METHADONE HCL 10 MG TABLET PO SCH ×3 (01:32→17:53)
[2019-06-02] MEDS: FUROSEMIDE INJ/PF 20 MG/2 ML SDV IV SCH ×2 (05:29→17:55)
[2019-06-02] MEDS: METHYLPREDNISOLONE INJ 40 MG/1 ML SDV IV SCH ×3 (05:29→21:32)
[2019-06-02 05:56] LABS: ABSOLUTE LYMPHOCYTES (AUTO) 0.8 10^3/uL (0.5-4.7); ABSOLUTE MONOCYTES (AUTO) 0.5 10^3/uL (0.1-1.4); ABSOLUTE NEUT (AUTO) 8.8 10^3/uL (1.7-8.2); BASOPHILS % (AUTO) 0.1 % (0-2); HEMATOCRIT 35.3 % (37.9-51.0); HEMOGLOBIN 12.1 g/dL (13.5-17.0); LYMPHOCYTES % (AUTO) 8.4 % (13-45); MEAN CORPUSCULAR HEMOGLOBIN 32.9 pg (27.0-33.4); MEAN CORPUSCULAR HGB CONC 34.2 g/dL (32.0-36.0); MEAN CORPUSCULAR VOLUME 96 fl (80-97); MONOCYTES % (AUTO) 4.7 % (3-13); PLATELET COUNT 180 10^3/uL (150-450); RED BLOOD COUNT 3.67 10^6/uL (4.35-5.55); RED CELL DISTRIBUTION WIDTH 14.5 % (11.5-14.0); SEGMENTED NEUTROPHILS % (AUTO) 86.8 % (42-78); TOTAL CELLS COUNTED % (AUTO) 100 %; WHITE BLOOD COUNT 10.2 10^3/uL (4.0-10.5)
[2019-06-02 06:24] LABS: ANION GAP 9 (5-19); BLOOD UREA NITROGEN 24 mg/dL (7-20); CALCIUM 9.5 mg/dL (8.4-10.2); CARBON DIOXIDE 32 mmol/L (22-30); CHLORIDE 94 mmol/L (98-107); GLUCOSE 127 mg/dL (75-110); POTASSIUM 4.4 mmol/L (3.6-5.0)
[2019-06-02] MEDS: ENOXAPARIN SODIUM INJ 40 MG/0.4 ML DISP.SYRIN SUBCUT SCH (09:17)
[2019-06-02] MEDS: FAMOTIDINE 20 MG TABLET PO SCH ×2 (09:19→21:32)
[2019-06-02] MEDS: DOCUSATE SODIUM 100 MG CAPSULE PO SCH ×2 (09:19→17:53)
[2019-06-02] MEDS: ISOSORBIDE MONONITRATE 60 MG TAB.ER.24H PO SCH (09:19)
--- NOTE | 2019-06-02 18:55 | Progress Note ---
Provider Note Provider Note: CARDIOLOGY PROGRESS NOTE by Dr. Kyra Simpson on 06/02/2019. SUBJECTIVE: The patient is lying down flat. He denies any chest pain discomfort. There is no shortness of breath. There is no cough or wheezing. There is no PND orthopnea. There is no arrhythmia seen on the monitor. Still awaiting records from [facility]. The patient has been advised by Dr. Contreras and also by me that he needs to quit smoking. It seems that the patient seems to have significant advanced COPD, and hence I am hesitant to start the patient on beta-lucia. We will see what the last ejection fraction was from the records from [facility]. PHYSICAL EXAMINATION: The patient is a frail build and appears to be chronically ill. Selected Entries 06/02/19 06/02/19 07:34 07:54 Temperature 98.2 F Temperature Oral Source Pulse Rate 77 Respiratory 17 Rate Blood Pressure 142/79 H Blood Pressure 100 Mean BP Location Left Arm BP Position Sitting O2 Sat by Pulse 96 Oximetry Fraction of 21 Inspired Oxygen (FIO2) HEAD: Head is atraumatic and normocephalic. EYES: Pupils are equal round regular reactive to light accommodation. Extraocular movements are normal, there is no conjunctival pallor, and no scleral icterus. EARS: Tympanic membranes are intact external auditory canals are clear. NOSE: There is no inflammation of the nasal mucous membrane there is no deviated nasal septum. MOUTH: Mucous membranes of mouth and tongue are moist, there is no ulcers in the mouth or tongue, and no bleeding from the gums. THROAT: There is no redness of the oropharynx, no exudate seen. SKIN: There is no petechia or ecchymosis. The re is no rashes or lesions. NECK: Supple. There is no JVD. Carotids are equal there is no bruit. There is no lymphadenopathy. There is no goiter. Trachea central LUNGS: There is diminished air entry and prolonged expiration. There is on today's examination no rhonchi rales or wheezing. There is no rales of CHF today. On percussion there is hyperresonance although there is no chest wall tenderness HEART: S1 and S2 are heard. S1 is of normal intensity, there is no S3 or S4 gallops. There is a systolic murmur the left sternal border and the apex. There is no rub. ABDOMEN: Normoactive bowel sounds, soft, nontender, no masses, no rebound, no guarding. There is no hepatosplenomegaly. EXTREMITIES: Femorals are slightly diminished. There is no femoral bruits. Leg pulses are diminished. There is no pedal edema. There is no DVT or cellulitis. There is no cyanosis or clubbing. There is no calf tenderness. NEUROLOGICAL the patient is awake alert oriented 3 with no focal deficits. PSYCHIATRIC: The patient judgment and insight are intact his affect is normal. Labs- All tests 24 hr 06/02/19 06/02/19 05:22 05:22 WBC 10.2 RBC 3.67 L Hgb 12.1 L Hct 35.3 L MCV 96 MCH 32.9 MCHC 34.2 RDW 14.5 H Plt Count 180 Lymph % (Auto) 8.4 L [place] % (Auto) 4.7 Eos % (Auto) 0.0 Baso % (Auto) 0.1 Absolute Neuts (auto) 8.8 H Absolute Lymphs (auto) 0.8 Absolute Monos (auto) 0.5 Absolute Eos (auto) 0.0 Absolute Basos (auto) 0.0 Seg Neutrophils % 86.8 H Sodium 135.1 L Potassium 4.4 Chloride 94 L Carbon Dioxide 32 H Anion Gap 9 BUN 24 H Creatinine 0.71 Est GFR ( Amer) > 60 Est GFR (MDRD) Non-Af > 60 Glucose 127 H Calcium 9.5 Chest X-Ray 05/30/19 16:06 IMPRESSION: Findings are consistent with interstitial edema in the setting of COPD. Small associated effusions. Chest/Abdomen CTA 05/30/19 18:04 IMPRESSION: No pulmonary embolism. Severe COPD. Moderate right greater than left pleural effusions. Bilateral lower lobe interstitial thickening suggestive of pulmonary edema. Chest X-Ray 06/01/19 00:00 IMPRESSION: No acute cardiopulmonary disease. Resolution of previously seen evidence for CHF and bilateral pleural effusions. The patient is record from [facility]. The patient in May 2018 had coronary artery bypass graft surgery well and NOBLE was placed to the left anterior descending artery, reverse vein graft was placed to the obtuse marginal branch he also had a reverse saphenous vein graft to the diagonal and also to the right posterior descending artery. In June 2018 his LV ejection fraction was 25 to 30%. IMPRESSION/RECOMMENDATION: 1. Congestive heart failure systolic versus diastolic. Await records from [facility]. We will start the patient on lisinopril which is his home medication. Continue IV Lasix. Was the patient's wheezing and acute exacerbation of COPD resolves then would put the patient on a beta-lucia long- acting. This is especially if the patient's LV function is compromised. If no recent echo has been done in the past 6 months we will get an echocardiogram done to assess the patient's LV ejection fraction. At present patient seems to be compensated and there is no evidence of CHF clinicallY. Chest x-ray shows no acute abnormality. 2. Acute exacerbation of COPD: Possible bronchitis. Recommend continue oxygen, and antibiotics, and bronchodilators. Consider steroid. This is remarkably improved. 3. Hypertension: Blood pressure still elevated. Hopefully will restart the patient's home medication of lisinopril and this will bring it down. 4. Coronary artery disease: History of coronary artery bypass graft surgery. History of MIs in the past. No evidence of non-ST elevation [place] this admission. The patient has no anginal symptoms. Recommend continue the patient's nitrate. 5. Left bundle branch block pattern. This is chronic. The patient's prior EKG in 2017 was reviewed and this shows left bundle branch block pattern. 6. Chronic pain syndrome. Continue methadone. 7. Tobacco abuse disorder: Tobacco cessation counseling given. 4 minutes spent on this. Ill effects of tobacco explained. Medications reviewed. Medication regimen and management plan discussed with attending physician. 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 Medical decision making is of moderate complexity. 40 minutes spent on this patient more than 50% time spent in direct patient care. Will follow
[2019-06-02] MEDS: CEFTRIAXONE 1 GM/D5W RTU 1 GM/50 ML RTUPB IV SCH (21:32)
--- NOTE | 2019-06-02 22:24 | PDOC PROGRESS REPORT ---
Subjective Progress Note for:: 06/02/19 Subjective:: Patient reported significant improvement in his breathing. No chest pain. No nausea, vomiting, or abdominal pain. No fever or chills. Reason For Visit: CONGESTIVE HEART FAILURE Physical Exam Vital Signs: Temp Pulse Resp BP Pulse Ox 98.2 F 74 18 136/68 H 99 06/02/19 14:57 06/02/19 14:57 06/02/19 14:57 06/02/19 14:57 06/02/19 14:57 Intake & Output 06/01/19 06/02/19 06/03/19 06:59 06:59 06:59 Intake Total 1350 1122 360 Balance 1350 1122 360 Weight 48 kg 47.8 kg General appearance: PRESENT: no acute distress, thin Head exam: PRESENT: atraumatic, normocephalic Eye exam: PRESENT: conjunctiva pink. ABSENT: scleral icterus Ear exam: PRESENT: TM's normal bilaterally Mouth exam: PRESENT: moist Respiratory exam: PRESENT: decreased breath sounds - at lung bases Cardiovascular exam: PRESENT: RRR, +S1, +S2, systolic murmur - LLSB region. ABSENT: diastolic murmur, rubs Murmur grade: 3 Vascular exam: ABSENT: pallor GI/Abdominal exam: PRESENT: normal bowel sounds, soft. ABSENT: distended, guarding, mass, organolmegaly, rebound, tenderness Extremities exam: ABSENT: pedal edema Neurological exam: PRESENT: alert, awake, oriented to person, oriented to place, oriented to time, oriented to situation, CN II-XII grossly intact. ABSENT: motor sensory deficit Psychiatric exam: PRESENT: appropriate affect, normal mood. ABSENT: homicidal ideation, suicidal ideation Skin exam: PRESENT: dry, warm Results Laboratory Results: 06/02/19 05:22 06/02/19 05:22 06/02/19 06/02/19 05:22 05:22 WBC 10.2 RBC 3.67 L Hgb 12.1 L Hct 35.3 L MCV 96 MCH 32.9 MCHC 34.2 RDW 14.5 H Plt Count 180 Seg Neutrophils % 86.8 H Sodium 135.1 L Potassium 4.4 Chloride 94 L Carbon Dioxide 32 H Anion Gap 9 BUN 24 H Creatinine 0.71 Est GFR ( Amer) > 60 Glucose 127 H Calcium 9.5 05/30/19 05/30/19 05/30/19 16:40 20:28 20:35 Creatine Kinase 104 CK-MB (CK-2) Troponin I 0.045 0.037 NT-Pro-B Natriuret Pep 75561 H 05/30/19 05/31/19 05/31/19 20:35 02:18 02:18 Creatine Kinase 81 CK-MB (CK-2) 2.60 2.03 Troponin I 0.036 0.022 NT-Pro-B Natriuret Pep 05/31/19 05/31/19 09:04 09:04 Creatine Kinase 100 CK-MB (CK-2) 2.30 Troponin I 0.016 NT-Pro-B Natriuret Pep Impressions: Chest/Abdomen CTA 05/30/19 18:04 IMPRESSION: No pulmonary embolism. Severe COPD. Moderate right greater than left pleural effusions. Bilateral lower lobe interstitial thickening suggestive of pulmonary edema. Chest X-Ray 06/01/19 00:00 IMPRESSION: No acute cardiopulmonary disease. Resolution of previously seen evidence for CHF and bilateral pleural effusions. Assessment & Plan - Diagnosis (1) COPD with acute exacerbation Is this a current diagnosis for this admission?: Yes Plan: See attending physician orders for details of care plan (2) Systolic CHF Qualifiers: Heart failure chronicity: acute Qualified Code(s): I50.21 - Acute systolic (congestive) heart failure Is this a current diagnosis for this admission?: Yes Plan: See attending physician orders for details of care plan. (3) Coronary artery disease Qualifiers: Coronary Disease-Associated Artery/Lesion type: bypass graft Associated angina: without angina Is this a current diagnosis for this admission?: Yes Plan: See attending physician orders for details of care plan (4) Hypertension Qualifiers: Hypertension type: essential hypertension Qualified Code(s): I10 - Essential (primary) hypertension Is this a current diagnosis for this admission?: Yes Plan: See attending physician orders for details of care plan (5) Chronic pain syndrome Is this a current diagnosis for this admission?: Yes Plan: See attending physician orders for details of care plan - Time Time Spent with patient: 25-34 minutes Level of Care: IMCU Medications reviewed and adjusted accordingly: Yes Anticipated discharge: Home Within: Other - Inpatient Certification Based on my medical assessment, after consideration of the patient's comorbidities, presenting symptoms, or acuity I expect that the services needed warrant INPATIENT care.: Yes I certify that my determination is in accordance with my understanding of Medicare's requirements for reasonable and necessary INPATIENT services [42 CFR 412.3e].: Yes Medical Necessity: Significant Comorbidiites Make Outpatient Treatment Too Risky, Need Close Monitoring Due to Risk of Patient Decompensation, Need For Continuous Telemetry Monitoring, Need for Nebulizer Therapy and Monitoring of Response, Need for IV Antibiotics, Risk of Complication if Not Cared For in Hospital, Risk of Diagnosis Which Will Require Inpatient Eval/Care/Monitoring Post Hospital Care: D/C Resident Care Manager Rn Documentation - Plan Summary Plan Summary: D/C IV Solu Medrol and Lasix. Start on Prednisone 20 mg p.o daily and Lasix 20 mg p.o daily from 06/03/19. Continue other current medication management. Follow up on blood culture findings. There is improvement in the chest CT and X ray findings with less likely pulmonary infection as part of his exacerbated COPD. I financial services counselor patient during this bedside visit regarding smoking cessation as a significant contributor to his chronic morbidities.
[2019-06-03] MEDS: IPRATROPIUM/ALBUTEROL 0.5-2.5 MG/3 ML AMPUL NEB SCH ×7 (00:13→21:38)
[2019-06-03] MEDS: METHADONE HCL 10 MG TABLET PO SCH ×3 (03:28→17:27)
[2019-06-03] MEDS: METHYLPREDNISOLONE INJ 40 MG/1 ML SDV IV SCH (06:47)
[2019-06-03] MEDS: FUROSEMIDE INJ/PF 20 MG/2 ML SDV IV SCH (06:47)
[2019-06-03 07:06] LABS: ANION GAP 10 (5-19); BLOOD UREA NITROGEN 27 mg/dL (7-20); CALCIUM 9.5 mg/dL (8.4-10.2); CARBON DIOXIDE 30 mmol/L (22-30); CHLORIDE 97 mmol/L (98-107); GLUCOSE 146 mg/dL (75-110); POTASSIUM 4.7 mmol/L (3.6-5.0)
[2019-06-03] MEDS: ISOSORBIDE MONONITRATE 60 MG TAB.ER.24H PO SCH (09:57)
[2019-06-03] MEDS: FAMOTIDINE 20 MG TABLET PO SCH ×2 (09:57→22:07)
[2019-06-03] MEDS: DOCUSATE SODIUM 100 MG CAPSULE PO SCH ×2 (09:57→17:27)
[2019-06-03] MEDS: LISINOPRIL 10 MG TABLET PO SCH (09:57)
[2019-06-03] MEDS: PREDNISONE 20 MG TABLET PO SCH (09:57)
[2019-06-03] MEDS: ENOXAPARIN SODIUM INJ 40 MG/0.4 ML DISP.SYRIN SUBCUT SCH (09:58)
[2019-06-03] MEDS: FUROSEMIDE 40 MG TABLET PO SCH (09:58)
[2019-06-03] MEDS ORDERED: CARVEDILOL 3.125 MG TABLET PO SCH (10:00)
--- NOTE | 2019-06-03 15:37 | XCELERA REPORT ---
[address] [address] Transthoracic Echocardiogram Report Name: REMI DICKSON Age: 68 yrs Gender: Male : 1950 Patient Status: Inpatient Patient Location: [facility] [place]^A Study Date: 06/03/2019 10:28 AM Height: 64 in Weight: 104 lb BSA: 1.5 m2 Procedure: A two-dimensional transthoracic echocardiogram with color flow and Doppler was performed. Study Quality: Fair. Reason For Study: CHF History: CHF. Ordering Physician: NIKKI NAVA Performed By: Steph Gooden Interpretation Summary The left ventricle is mildly dilated. There is normal left ventricular wall thickness. LV EF is 35% Doppler measurements suggest impaired left ventricular relaxation, which is associated with grade I/IV or mild diastolic dysfunction The apical septum is severely hypokinetic.The rest of the LV pham are moderately hypokinetic. There is no thrombus. No VSD,ASD,or PFO seen. The right ventricle is mildly dilated. The right ventricular systolic function is normal. The right atrium is mildly dilated. The left atrium is mildly dilated. There is no evidence of mitral valve prolapse. There is no vegetation seen on the mitral valve. There is no mitral valve stenosis. There is a moderate amount of mitral regurgitation There is no aortic valvular vegetation. There is aortic sclerosis without aortic stenosis. There is no LVOT obstruction. No aortic regurgitation is present. There is no tricuspid stenosis. There is a mild amount of tricuspid regurgitation There is mild pulmonary hypertension by echo RVSP is 34 t0 39 mm of Hg , with RA mean of 5 to 10. There is no pulmonic valvular stenosis. There is no pulmonic valvular regurgitation. The aortic root is normal size. The inferior vena cava appeared normal and decreased > 50% with respiration (RAP 5-10 mmHg) There is no pericardial effusion. MMode/2D Measurements & Calculations RVDd: 3.1 cm LVIDd: 4.9 cm FS: 18.2 % Ao root diam: 2.9 cm IVSd: 0.99 cm LVIDs: 4.0 cm EDV(Teich): LVPWd: 0.96 cm 113.9 ml Ao root area: ESV(Teich): 6.6 cm2 71.1 ml LA dimension: EF(Teich): 37.6 % 2.7 cm LVLd ap4: 8.0 cm SV(MOD-sp4): EDV(MOD-sp4): 29.0 ml 105.0 ml LVLs ap4: 7.5 cm ESV(MOD-sp4): 76.0 ml EF(MOD-sp4): 27.6 % Doppler Measurements & Calculations MV E max geovanna: MV P1/2t max geovanna: Ao V2 max: LV V1 max P.8 cm/sec 79.8 cm/sec 109.9 cm/sec 2.0 mmHg MV A max geovanna: MV P1/2t: 52.6 msec Ao max P.8 mmHg LV V1 max: 70.2 cm/sec MVA(P1/2t): 4.2 cm2 70.6 cm/sec MV E/A: 1.1 MV dec slope: 444.5 cm/sec2 MV dec time: 0.19 sec PA V2 max: TR max geovanna: MV P1/2t-pr_phl: 81.4 cm/sec 268.8 cm/sec 52.6 msec PA max PG: TR max P.9 mmHg 2.6 mmHg Left Ventricle The left ventricle is mildly dilated. There is normal left ventricular wall thickness. LV EF is 35%. Left ventricular systolic function is moderately reduced. Doppler measurements suggest impaired left ventricular relaxation, which is associated with grade I/IV or mild diastolic dysfunction. The apical septum is severely hypokinetic.The rest of the LV pham are moderately hypokinetic. There is no thrombus. No VSD,ASD,or PFO seen. Right Ventricle The right ventricle is mildly dilated. The right ventricular systolic function is normal. Atria The right atrium is mildly dilated. The left atrium is mildly dilated. Mitral Valve There is no evidence of mitral valve prolapse. There is no vegetation seen on the mitral valve. There is no mitral valve stenosis. There is a moderate amount of mitral regurgitation. Aortic Valve There is no aortic valvular vegetation. There is aortic sclerosis without aortic stenosis. There is no LVOT obstruction. No aortic regurgitation is present. Tricuspid Valve There is no tricuspid stenosis. There is a mild amount of tricuspid regurgitation. There is mild pulmonary hypertension by echo. RVSP is 34 t0 39 mm of Hg , with RA mean of 5 to 10. Pulmonic Valve There is no pulmonic valvular stenosis. There is no pulmonic valvular regurgitation. Great Vessels The aortic root is normal size. The inferior vena cava appeared normal and decreased > 50% with respiration (RAP 5-10 mmHg). Effusions There is no pericardial effusion. : NIKKI NAVA, Kyra
--- NOTE | 2019-06-03 16:17 | EKG REPORT ---
SEVERITY:- ABNORMAL ECG - SINUS RHYTHM LEFT BUNDLE BRANCH BLOCK : Confirmed by: Kyra Simpson MD 03-Jun-2019 16:16:26
--- NOTE | 2019-06-03 18:36 | PDOC PROGRESS REPORT ---
Subjective Progress Note for:: 06/03/19 Subjective:: Patient denied any chest pain or difficulty with breathing. No nausea, vomiting, or abdominal pain. No fever or chill. Reason For Visit: CONGESTIVE HEART FAILURE Physical Exam Vital Signs: Temp Pulse Resp BP Pulse Ox 97.7 F 76 16 146/80 H 99 06/02/19 23:39 06/03/19 07:00 06/03/19 04:07 06/02/19 23:39 06/03/19 04:07 Intake & Output 06/02/19 06/03/19 06/04/19 06:59 06:59 06:59 Intake Total 1122 1250 Balance 1122 1250 Weight 47.8 kg 47.2 kg Physical Exam: General appearance: PRESENT: no acute distress, thin Head exam: PRESENT: atraumatic, normocephalic Eye exam: PRESENT: conjunctiva pink. ABSENT: pallor, scleral icterus Ear exam: PRESENT: TM's normal bilaterally Mouth exam: PRESENT: moist Respiratory exam: PRESENT: decreased breath sounds - at lung bases Cardiovascular exam: PRESENT: RRR, +S1, +S2, systolic murmur - LLSB region. ABSENT: diastolic murmur, rubs Murmur grade: 3 GI/Abdominal exam: PRESENT: normal bowel sounds, soft. ABSENT: distended, guarding, mass, organomegaly, rebound, tenderness Extremities exam: ABSENT: pedal edema Neurological exam: PRESENT: alert, awake, oriented to person, oriented to place, oriented to time, oriented to situation, CN II-XII grossly intact. ABSENT: motor sensory deficit Psychiatric exam: PRESENT: appropriate affect, normal mood. ABSENT: homicidal ideation, suicidal ideation Skin exam: PRESENT: dry, warm Murmur grade: 3 Results Laboratory Results: 06/02/19 05:22 06/03/19 06:17 06/03/19 06:17 Sodium 136.8 L Potassium 4.7 Chloride 97 L Carbon Dioxide 30 Anion Gap 10 BUN 27 H Creatinine 0.65 Est GFR ( Amer) > 60 Glucose 146 H Calcium 9.5 05/30/19 05/30/19 05/30/19 16:40 20:28 20:35 Creatine Kinase 104 CK-MB (CK-2) Troponin I 0.045 0.037 NT-Pro-B Natriuret Pep 23621 H 11/03/1005/31/19 05/31/19 20:35 02:18 02:18 Creatine Kinase 81 CK-MB (CK-2) 2.60 2.03 Troponin I 0.036 0.022 NT-Pro-B Natriuret Pep 05/31/19 05/31/19 09:04 09:04 Creatine Kinase 100 CK-MB (CK-2) 2.30 Troponin I 0.016 NT-Pro-B Natriuret Pep Impressions: Chest/Abdomen CTA 05/30/19 18:04 IMPRESSION: No pulmonary embolism. Severe COPD. Moderate right greater than left pleural effusions. Bilateral lower lobe interstitial thickening suggestive of pulmonary edema. Chest X-Ray 06/01/19 00:00 IMPRESSION: No acute cardiopulmonary disease. Resolution of previously seen evidence for CHF and bilateral pleural effusions. Assessment & Plan - Diagnosis (1) Acute on chronic systolic CHF (congestive heart failure) Is this a current diagnosis for this admission?: Yes Plan: Emphasized need for medication compliance. Patient have been refusing his IV and oral Lasix administration as per nursing report today. (2) COPD with acute exacerbation Is this a current diagnosis for this admission?: Yes (3) Coronary artery disease Qualifiers: Coronary Disease-Associated Artery/Lesion type: bypass graft Associated angina: without angina Is this a current diagnosis for this admission?: Yes (4) Hypertension Qualifiers: Hypertension type: essential hypertension Qualified Code(s): I10 - Essential (primary) hypertension Is this a current diagnosis for this admission?: Yes (5) Chronic pain syndrome Is this a current diagnosis for this admission?: Yes - Time Time Spent with patient: 25-34 minutes Level of Care: IMCU Medications reviewed and adjusted accordingly: Yes Anticipated discharge: Home with Homehealth Within: Other - Inpatient Certification Based on my medical assessment, after consideration of the patient's comorbidities, presenting symptoms, or acuity I expect that the services needed warrant INPATIENT care.: Yes I certify that my determination is in accordance with my understanding of Medicare's requirements for reasonable and necessary INPATIENT services [42 CFR 412.3e].: Yes Medical Necessity: Significant Comorbidiites Make Outpatient Treatment Too Ris [place], Need Close Monitoring Due to Risk of Patient Decompensation, Need For Continuous Telemetry Monitoring, Need for Nebulizer Therapy and Monitoring of Response, Need for IV Antibiotics, Risk of Complication if Not Cared For in Hospital, Risk of Diagnosis Which Will Require Inpatient Eval/Care/Monitoring Post Hospital Care: D/C Risk Control Field Representative Documentation - Plan Summary Plan Summary: D/C IV Lasix. Start on Lasix 40 mg po daily. Restart on Carvedilol and Lisinopril as per his pre-admission medication dosing.
[2019-06-03] MEDS: ACETAMINOPHEN 325 MG TABLET PO PRN (19:29)
[2019-06-03] MEDS ORDERED: IPRATROPIUM/ALBUTEROL 0.5-2.5 MG/3 ML AMPUL NEB PRN (20:00)
--- NOTE | 2019-06-03 21:17 | Progress Note ---
Provider Note Provider Note: CARDIOLOGY PROGRESS NOTE by Dr. Kyra Simpson on 06/03/2019. SUBJECTIVE: The patient has no chest pain or discomfort. There is no shortness of breath. There is no cough or wheezing. There is no PND orthopnea. There is no leg edema. There is no arrhythmia seen on the monitor. PHYSICAL EXAMINATION: The patient is a frail build and appears chronically ill. Selected Entries 06/03/19 15:49 Temperature 98.2 F Temperature Oral Source Pulse Rate 72 Respiratory 16 Rate BP Location Right Arm BP Position Supine O2 Sat by Pulse 98 Oximetry Oxygen Delivery Room Air Method Selected Entries 06/03/19 15:49 Blood Pressure 124/57 L Blood Pressure 79 Mean BP Location Right Arm BP Position Supine HEAD: Head is atraumatic and normocephalic. EYES: Pupils are equal round regular reactive to light accommodation. Extraocular movements are normal, there is no conjunctival pallor, and no scleral icterus. EARS: Tympanic membranes are intact external auditory canals are clear. NOSE: There is no inflammation of the nasal mucous membrane there is no deviated nasal septum. MOUTH: Mucous membranes of mouth and tongue are moist, there is no ulcers in the mouth or tongue, and no bleeding from the gums. THROAT: There is no redness of the oropharynx, no exudate seen. SKIN: There is no petechia or ecchymosis. There is no rashes or lesions. NECK: Supple. There is no JVD. Carotids are equal there is no bruit. There is no lymphadenopathy. There is no goiter. Trachea central LUNGS: There is diminished air entry and prolonged expiration. There is on today's examination no rhonchi rales or wheezing. There is no rales of CHF today. On percussion there is hyperresonance although there is no chest wall tenderness HEART: S1 and S2 are heard. S1 is of normal intensity, there is no S3 or S4 gallops. There is a systolic murmur the left sternal border and the apex. There is no rub. ABDOMEN: Normoactive bowel sounds, soft, nontender, no masses, no rebound, no guarding. There is no hepatosplenomegaly. EXTREMITIES: Femorals are slightly diminished. There is no femoral bruits. Leg pulses are diminished. There is no pedal edema. There is no DVT or cellulitis. There is no cyanosis or clubbing. There is no calf tenderness. NEUROLOGICAL the patient is awake alert oriented 3 with no focal deficits. PSYCHIATRIC: The patient judgment and insight are intact his affect is normal. Labs- All tests 24 hr 06/03/19 06:17 Sodium 136.8 L Potassium 4.7 Chloride 97 L Carbon Dioxide 30 Anion Gap 10 BUN 27 H Creatinine 0.65 Est GFR ( Amer) > 60 Est GFR (MDRD) Non-Af > 60 Glucose 146 H Calcium 9.5 Chest X-Ray 05/30/19 16:06 IMPRESSION: Findings are consistent with interstitial edema in the setting of COPD. Small associated effusions. Chest/Abdomen CTA 05/30/19 18:04 IMPRESSION: No pulmonary embolism. Severe COPD. Moderate right greater than left pleural effusions. Bilateral lower lobe interstitial thickening suggestive of pulmonary edema. Chest X-Ray 06/01/19 00:00 IMPRESSION: No acute cardiopulmonary disease. Resolution of previously seen evidence for CHF and bilateral pleural effusions. Echo: Shows LV ejection fraction moderately reduced at 35%. There is apical septal severe hypokinesis with moderate hypokinesis of the rest of the LV pham. There is mild pulmonary hypertension. IMPRESSION/RECOMMENDATION: 1. Congestive heart failure systolic versus diastolic. [facility] We will start the patient on lisinopril which is his home medication. Continue IV Lasix. Was the patient's wheezing and acute exacerbation of COPD resolves then would put the patient on a beta-lucia long- acting. The left ventricle ejection fraction is moderately compromised. Start the patient on long-acting Toprol-XL instead of Coreg. The plan is to repeat the echocardiogram in 3 months, and if still LV Gentafair 35% or below then would refer the patient for AICD placement. This has been discussed with the patient. 2. Acute exacerbation of COPD: Possible bronchitis. Recommend continue oxygen, and antibiotics, and bronchodilators. Consider steroid. This is remarkably improved. 3. Hypertension: Blood pressure still elevated. Hopefully will restart the patient's home medication of lisinopril and this will bring it down. 4. Coronary artery disease: History of coronary artery bypass graft surgery. History of MIs in the past. No evidence of non-ST elevation PR this admission. The patient has no anginal symptoms. Recommend continue the patient's nitrate. 5. Cardiomyopathy with moderately reduced LV ejection fraction. Start the patient on Toprol-XL in view of the patient's COPD. This is instead of Coreg. 6.Left bundle branch block pattern. This is chronic. The patient's prior EKG in 2017 was reviewed and this shows left bundle branch block pattern. 7 Chronic pain syndrome. Continue methadone. 8. Tobacco abuse disorder: Tobacco cessation counseling given. 4 minutes spent on this. Ill effects of tobacco explained. Medications reviewed. Management plan discussed with attending physician on the case Dr. Contreras. Medical regimen and management plan were discussed with him in detail. Medical decision making is of high complexity. 40 minutes spent on this patient more than 50% of time spent in direct patient care. Will follow
[2019-06-03] MEDS: CEFTRIAXONE 1 GM/D5W RTU 1 GM/50 ML RTUPB IV SCH (22:07)
[2019-06-03] MEDS: ATORVASTATIN CALCIUM 80 MG TABLET PO SCH (22:07)
[2019-06-04] MEDS: METHADONE HCL 10 MG TABLET PO SCH ×3 (01:41→17:16)
[2019-06-04] MEDS: IPRATROPIUM/ALBUTEROL 0.5-2.5 MG/3 ML AMPUL NEB SCH ×3 (08:20→20:33)
[2019-06-04] MEDS ORDERED: METOPROLOL SUCCINATE 25 MG TAB.SR.24H PO SCH (10:00)
[2019-06-04] MEDS: LISINOPRIL 10 MG TABLET PO SCH (10:20)
[2019-06-04] MEDS: DOCUSATE SODIUM 100 MG CAPSULE PO SCH ×2 (10:20→17:16)
[2019-06-04] MEDS: ISOSORBIDE MONONITRATE 60 MG TAB.ER.24H PO SCH (10:20)
[2019-06-04] MEDS: FAMOTIDINE 20 MG TABLET PO SCH ×2 (10:20→21:09)
[2019-06-04] MEDS: PREDNISONE 20 MG TABLET PO SCH (10:20)
[2019-06-04] MEDS: FUROSEMIDE 40 MG TABLET PO SCH (10:20)
[2019-06-04] MEDS: ENOXAPARIN SODIUM INJ 40 MG/0.4 ML DISP.SYRIN SUBCUT SCH (10:21)
--- NOTE | 2019-06-04 18:39 | PDOC PROGRESS REPORT ---
Subjective Progress Note for:: 06/04/19 Subjective:: Patient denied any chest pain or difficulty with breathing. No nausea, vomiting, or abdominal pain. No fever or chill. Cardiology input regarding beta lucia change and need for repeat echo in 3 months fr further evaluation of need for AICD noted. Reason For Visit: CONGESTIVE HEART FAILURE Physical Exam Vital Signs: Temp Pulse Resp BP Pulse Ox 97.6 F 72 18 144/75 H 100 06/04/19 07:40 06/04/19 07:40 06/04/19 07:40 06/04/19 07:40 06/04/19 07:40 Intake & Output 06/03/19 06/04/19 06/05/19 06:59 06:59 06:59 Intake Total 1250 790 Balance 1250 790 Weight 47.2 kg 47 kg Physical Exam: General appearance: PRESENT: no acute distress, thin Head exam: PRESENT: atraumatic, normocephalic Eye exam: PRESENT: conjunctiva pink. ABSENT: pallor, scleral icterus Ear exam: PRESENT: TM's normal bilaterally Mouth exam: PRESENT: moist Respiratory exam: PRESENT: decreased breath sounds - at lung bases Cardiovascular exam: PRESENT: RRR, +S1, +S2, systolic murmur - LLSB region. ABSENT: diastolic murmur, rubs Murmur grade: 3 GI/Abdominal exam: PRESENT: normal bowel sounds, soft. ABSENT: distended, guarding, mass, organomegaly, rebound, tenderness Extremities exam: ABSENT: pedal edema Neurological exam: PRESENT: alert, awake, oriented to person, oriented to place, oriented to time, oriented to situation, CN II-XII grossly intact. ABSENT: motor sensory deficit Psychiatric exam: PRESENT: appropriate affect, normal mood. ABSENT: homicidal ideation, suicidal ideation Skin exam: PRESENT: dry, warm Murmur grade: 3 Murmur grade: 3 Results Laboratory Results: 06/02/19 05:22 06/03/19 06:17 05/30/19 05/30/19 05/30/19 16:40 20:28 20:35 Creatine Kinase 104 CK-MB (CK-2) Troponin I 0.045 0.037 NT-Pro-B Natriuret Pep 42528 H 05/30/19 05/31/19 05/31/19 20:35 02:18 02:18 Creatine Kinase 81 CK-MB (CK-2) 2.60 2.03 Troponin I 0.036 0.022 NT-Pro-B Natriuret Pep 05/31/19 05/31/19 09:04 09:04 Creatine Kinase 100 CK-MB (CK-2) 2.30 Troponin I 0.016 NT-Pro-B Natriuret Pep Impressions: Chest/Abdomen CTA 05/30/19 18:04 IMPRESSION: No pulmonary embolism. Severe COPD. Moderate right greater than left pleural effusions. Bilateral lower lobe interstitial thickening suggestive of pulmonary edema. Chest X-Ray 06/01/19 00:00 IMPRESSION: No acute cardiopulmonary disease. Resolution of previously seen evidence for CHF and bilateral pleural effusions. Assessment & Plan - Diagnosis (1) Acute on chronic systolic CHF (congestive heart failure) Is this a current diagnosis for this admission?: Yes (2) COPD with acute exacerbation Is this a current diagnosis for this admission?: Yes (3) Coronary artery disease Qualifiers: Coronary Disease-Associated Artery/Lesion type: bypass graft Associated angina: without angina Is this a current diagnosis for this admission?: Yes (4) Hypertension Qualifiers: Hypertension type: essential hypertension Qualified Code(s): I10 - Essential (primary) hypertension Is this a current diagnosis for this admission?: Yes (5) Chronic pain syndrome Is this a current diagnosis for this admission?: Yes - Time Time Spent with patient: 25-34 minutes Level of Care: IMCU Medications reviewed and adjusted accordingly: Yes Anticipated discharge: Home with Homehealth Within: Other - Inpatient Certification Based on my medical assessment, after consideration of the patient's comorbidities, presenting symptoms, or acuity I expect that the services needed warrant INPATIENT care.: Yes I certify that my determination is in accordance with my understanding of Medicare's requirements for reasonable and necessary INPATIENT services [42 CFR 412.3e].: Yes Medical Necessity: Significant Comorbidiites Make Outpatient Treatment Too Risky, Need Close Monitoring Due to Risk of Patient Decompensation, Need For Continuous Telemetry Monitoring, Need for IV Antibiotics, Risk of Complication if Not Cared For in Hospital, Risk of Diagnosis Which Will Require Inpatient Eval/Care/Monitoring Post Hospital Care: D/C Accounting System Expert Documentation - Plan Summary Plan Summary: Continue current medication management. Follow up n his blood culture findings.
[2019-06-04] MEDS: CEFTRIAXONE 1 GM/D5W RTU 1 GM/50 ML RTUPB IV SCH (21:09)
[2019-06-04] MEDS: ATORVASTATIN CALCIUM 80 MG TABLET PO SCH (21:09)
--- NOTE | 2019-06-04 22:28 | Progress Note ---
Provider Note Provider Note: CARDIOLOGY PROGRESS NOTE by Dr. Kyra Simpson on 06/04/2019. SUBJECTIVE: The patient denies any chest pain or discomfort. There is no shortness of breath. There is no PND orthopnea. The patient is tolerating beta-lucia. There is no atrial or ventricular arrhythmias seen. There is no TIA CVA symptoms. There is no leg edema. PHYSICAL EXAMINATION: The patient appears to be a frail build and chronically ill looking. But in no acute distress. Selected Entries 06/04/19 11:21 Temperature 97.9 F Temperature Oral Source Pulse Rate 71 Respiratory 16 Rate Blood Pressure 120/62 Blood Pressure 81 Mean BP Location Right Arm BP Position Supine O2 Sat by Pulse 96 Oximetry Oxygen Delivery Room Air Method HEAD: Head is atraumatic and normocephalic. EYES: Pupils are equal round regular reactive to light accommodation. Extraocular movements are normal, th ere is no conjunctival pallor, and no scleral icterus. EARS: Tympanic membranes are intact external auditory canals are clear. NOSE: There is no inflammation of the nasal mucous membrane there is no deviated nasal septum. MOUTH: Mucous membranes of mouth and tongue are moist, there is no ulcers in the mouth or tongue, and no bleeding from the gums. THROAT: There is no redness of the oropharynx, no exudate seen. SKIN: There is no petechia or ecchymosis. There is no rashes or lesions. NECK: Supple. There is no JVD. Carotids are equal there is no bruit. There is no lymphadenopathy. There is no goiter. Trachea central LUNGS: There is diminished air entry and prolonged expiration. There is on today's examination no rhonchi rales or wheezing. There is no rales of CHF today. On percussion there is hyperresonance although there is no chest wall tenderness HEART: S1 and S2 are heard. S1 is of normal intensity, there is no S3 or S4 gallops. There is a systolic murmur the left sternal border and the apex. There is no rub. ABDOMEN: Normoactive bowel sounds, soft, nontender, no masses, no rebound, no guarding. There is no hepatosplenomegaly. EXTREMITIES: Femorals are slightly diminished. There is no femoral bruits. Leg pulses are diminished. There is no pedal edema. There is no DVT or cellulitis. There is no cyanosis or clubbing. There is no calf tenderness. NEUROLOGICAL the patient is awake alert oriented 3 with no focal deficits. PSYCHIATRIC: The patient judgment and insight are intact his affect is normal. Chest X-Ray 05/30/19 16:06 IMPRESSION: Findings are consistent with interstitial edema in the setting of COPD. Small associated effusions. Chest/Abdomen CTA 05/30/19 18:04 IMPRESSION: No pulmonary embolism. Severe COPD. Moderate right greater than left pleural effusions. Bilateral lower lobe interstitial thickening suggestive of pulmonary edema. Chest X-Ray 06/01/19 00:00 IMPRESSION: No acute cardiopulmonary disease. Resolution of previously seen evidence for CHF and bilateral pleural effusions. IMPRESSION/RECOMMENDATION: 1. Congestive heart failure systolic versus diastolic. Await records from [facility]. We will start the patient on lisinopril which is his home medication. Continue IV Lasix. Was the patient's wheezing and acute exacerbation of COPD resolves then would put the patient on a beta-lucia long- acting. The left ventricle ejection fraction is moderately compromised. Start the patient on long-acting Toprol-XL instead of Coreg. The plan is to repeat the echocardiogram in 3 months, and if still LV Gentafair 35% or below then would refer the patient for AICD placement. This has been discussed with the patient. 2. Acute exacerbation of COPD: Possible bronchitis. Recommend continue oxygen, and antibiotics, and bronchodilators. Consider steroid. This is remarkably improved. 3. Hypertension: Blood pressure still elevated. Hopefully will restart the patient's home medication of lisinopril and this will bring it down. 4. Coronary artery disease: History of coronary artery bypass graft surgery. History of MIs in the past. No evidence of non-ST elevation IA this admission. The patient has no anginal symptoms. Recommend continue the patient's nitrate. 5. Cardiomyopathy with moderately reduced LV ejection fraction. Start the patient on Toprol-XL in view of the patient's COPD. This is instead of Coreg. 6.Left bundle branch block pattern. This is chronic. The patient's prior EKG in 2017 was reviewed and this shows left bundle branch block pattern. 7 Chronic pain syndrome. Continue methadone. 8. Tobacco abuse disorder: Tobacco cessation counseling given. She is reviewed. Medication regimen and management plan discussed with Dr. Contreras. Medical decision making is of moderate complexity. 40 minutes spent on spent on this patient with more than 50% of time spent on direct patient care. Cardiac status is stable. Will sign off. Will follow the patient in the office. Contact numbers given. Discussed this with Dr. Contreras.
[2019-06-05] MEDS: METHADONE HCL 10 MG TABLET PO SCH (01:33)
[2019-06-05] MEDS: IPRATROPIUM/ALBUTEROL 0.5-2.5 MG/3 ML AMPUL NEB SCH (08:11)
[2019-06-05 09:04] VITALS: BP 162/96
--- NOTE | 2019-06-06 15:22 | PDOC DISCHARGE SUMMARY ---
Impression - Admit/DC Date/PCP Admission Date/Primary Care Provider: 05/30/19 22:22 NIKKI NAVA Discharge Date: 06/05/19 - Discharge Diagnosis (1) Acute on chronic systolic CHF (congestive heart failure) Is this a current diagnosis for this admission?: Yes (2) COPD with acute exacerbation Is this a current diagnosis for this admission?: Yes (3) Coronary artery disease Is this a current diagnosis for this admission?: Yes (4) Hypertension Is this a current diagnosis for this admission?: Yes (5) Chronic pain syndrome Is this a current diagnosis for this admission?: Yes - Additional Information Resuscitation Status: Full Code Discharge Diet: Cardiac Discharge Activity: Activity As Tolerated, Balance Activity w/Rest, Weigh Daily Referrals: JENNA DOLAN MD [ACTIVE STAFF] - 06/16/19 2:15 pm (Bring insurance cards and medications in bottles or updated list of medications.) NIKKI NAVA MD [Primary Care Provider] - 06/11/19 10:00 am (Obtain BMP during follow up appointment visit.) Prescriptions: Prednisone [Deltasone 5 mg Tablet] 5 mg PO ASDIR PRN #22 tablet PRN Reason: Isosorbide Mononitrate [Imdur 60 mg Tablet.er] 60 mg PO DAILY #30 tab.er.24h Furosemide [Lasix 40 mg Tablet] 40 mg PO DAILY #30 tablet Albuterol Sulfate [Proair Hfa Inhalation Aerosol 8.5 gm Mdi] 2 puff IH Q4 PRN #1 mdi PRN Reason: Metoprolol Succinate [Toprol Xl 25 mg Tab.sr] 25 mg PO DAILY #30 tab.sr.24h Fluticasone/Umeclidin/Vilanter [Trelegy 100-62.5-25 Mcg Ellipta 14 Dose/Dpi] 1 each IH DAILY 30 Days #2 inhaler Home Medications: Atorvastatin Calcium [Lipitor 80 mg Tablet] 80 mg PO QHS 05/31/19 Lisinopril [Prinivil 40 mg Tablet] 40 mg PO DAILY 05/31/19 Methadone HCl [Dolophine 10 mg Tablet] 10 mg PO Q8HP PRN 05/31/19 Omeprazole 20 mg PO DAILY 05/31/19 Albuterol Sulfate [Proair Hfa Inhalation Aerosol 8.5 gm Mdi] 2 puff IH Q4 PRN #1 mdi 06/05/19 Fluticasone/Umeclidin/Vilanter [Trelegy 100-62.5-25 Mcg Ellipta 14 Dose/Dpi] 1 each IH DAILY 30 Days #2 inhaler 06/05/19 Furosemide [Lasix 40 mg Tablet] 40 mg PO DAILY #30 tablet 06/05/19 Isosorbide Mononitrate [Imdur 60 mg Tablet.er] 60 mg PO DAILY #30 tab.er.24h 06/05/19 Metoprolol Succinate [Toprol Xl 25 mg Tab.sr] 25 mg PO DAILY #30 tab.sr.24h 06/05/19 Prednisone [Deltasone 5 mg Tablet] 5 mg PO ASDIR PRN #22 tablet 06/05/19 History of Present Illiness History of Present Illness: REMI DICKSON is a 68 year old male This is a 68-year-old f male with the significant history of the COPD with the 50-year of the smoking history of the coronary artery disease status post bypass history of the hypertension's history of the chronic pain syndromes currently on a methadone came to the emergency department complaining of a cough congestion and shortness of the breath for the last 5 days According to the patient's he is unable to breathe in the emergency department patient was hypoxic requiring oxygen In the emergency department patient's underwent for the CT scan of the chest to rule out any pulmonary embolism because of the hypoxia and the chest pain which is negative for any PE Patient's BNP was elevated Patient's received IV Lasix and IV steroid and nebulizer treatments Recent CT scans also severe COPD moderate right pleural effusions suggestive pulmonary edema When I saw the patient on the floor patients feel like a new person Patient's denied any chest pain to than any shortness of the breath No leg swelling Patient's used to see a cardiology at [place] saw the last year I believe Patients also see a pain management currently taking the chronic pain medications Physical Exam Vital Signs: Temp Pulse Resp BP Pulse Ox 97.6 F 59 L 16 112/65 99 06/05/19 03:56 06/05/19 07:00 06/05/19 03:56 06/05/19 03:56 06/05/19 03:56 Intake & Output 06/04/19 06/05/19 06/06/19 06:59 06:59 06:59 Intake Total 790 1272 Output Total 100 Balance 790 1172 Weight 47 kg 46.9 kg General appearance: PRESENT: no acute distress, thin Head exam: PRESENT: atraumatic, normocephalic Eye exam: PRESENT: conjunctiva pink. ABSENT: pallor, scleral icterus Ear exam: PRESENT: TM's normal bilaterally Mouth exam: PRESENT: moist Respiratory exam: Clear to auscultation. PRESENT: decreased breath sounds - at lung bases Cardiovascular exam: PRESENT: RRR, +S1, +S2, systolic murmur - LLSB region. ABSENT: diastolic murmur, rubs Murmur grade: 3 GI/Abdominal exam: PRESENT: normal bowel sounds, soft. ABSENT: distended, guarding, mass, organomegaly, rebound, tenderness Extremities exam: ABSENT: pedal edema Neurological exam: PRESENT: alert, awake, oriented to person, oriented to place, oriented to time, oriented to situation, CN II-XII grossly intact. ABSENT: motor sensory deficit Psychiatric exam: PRESENT: appropriate affect, normal mood. ABSENT: homicidal ideation, suicidal ideation Skin exam: PRESENT: dry, warm Results Laboratory Results: WBC 10.2 10^3/uL (4.0-10.5) 06/02/19 05:22 RBC 3.67 10^6/uL (4.35-5.55) L 06/02/19 05:22 Hgb 12.1 g/dL (13.5-17.0) L 06/02/19 05:22 Hct 35.3 % (37.9-51.0) L 06/02/19 05:22 MCV 96 fl (80-97) 06/02/19 05:22 MCH 32.9 pg (27.0-33.4) 06/02/19 05:22 MCHC 34.2 g/dL (32.0-36.0) 06/02/19 05:22 RDW 14.5 % (11.5-14.0) H 06/02/19 05:22 Plt Count 180 10^3/uL (150-450) 06/02/19 05:22 Lymph % (Auto) 8.4 % (13-45) L 06/02/19 05:22 [place] % (Auto) 4.7 % (3-13) 06/02/19 05:22 Eos % (Auto) 0.0 % (0-6) 06/02/19 05:22 Baso % (Auto) 0.1 % (0-2) 06/02/19 05:22 Absolute Neuts (auto) 8.8 10^3/uL (1.7-8.2) H 06/02/19 05:22 Absolute Lymphs (auto) 0.8 10^3/uL (0.5-4.7) 06/02/19 05:22 Absolute Monos (auto) 0.5 10^3/uL (0.1-1.4) 06/02/19 05:22 Absolute Eos (auto) 0.0 10^3/uL (0.0-0.6) 06/02/19 05:22 Absolute Basos (auto) 0.0 10^3/uL (0.0-0.2) 06/02/19 05:22 Seg Neutrophils % 86.8 % (42-78) H 06/02/19 05:22 Platelet Estimate Cancelled 06/01/19 04:15 PT 14.3 SEC (11.4-15.4) 05/30/19 16:40 INR 1.11 05/30/19 16:40 APTT 32.3 SEC (23.5-35.8) 05/30/19 16:40 Carbonic Acid 1.04 mmol/L (1.05-1.35) L 05/31/19 11:33 HCO3/H2CO3 Ratio 22:1 05/31/19 11:33 ABG pH 7.46 (7.35-7.45) H 05/31/19 11:33 ABG pCO2 34.5 mmHg (35-45) L 05/31/19 11:33 ABG pO2 108.5 mmHg (80-100) H 05/31/19 11:33 ABG HCO3 23.9 mmol/L (20-24) 05/31/19 11:33 ABG Total CO2 25.0 mmol/L (23-27) 05/31/19 11:33 ABG O2 Saturation 98.2 % (94-98) H 05/31/19 11:33 ABG Base Excess 0.6 mmol/L 05/31/19 11:33 FiO2 26% 05/31/19 11:33 Sodium 136.8 mmol/L (137-145) L 06/03/19 06:17 Potassium 4.7 mmol/L (3.6-5.0) 06/03/19 06:17 Chloride 97 mmol/L (98-107) L 06/03/19 06:17 Carbon Dioxide 30 mmol/L (22-30) 06/03/19 06:17 Anion Gap 10 (5-19) 06/03/19 06:17 BUN 27 mg/dL (7-20) H 06/03/19 06:17 Creatinine 0.65 mg/dL (0.52-1.25) 06/03/19 06:17 Est GFR ( Amer) > 60 (>60) 06/03/19 06:17 Est GFR (MDRD) Non-Af > 60 (>60) 06/03/19 06:17 Glucose 146 mg/dL (75-110) H 06/03/19 06:17 Calcium 9.5 mg/dL (8.4-10.2) 06/03/19 06:17 Magnesium 1.7 mg/dL (1.6-2.3) 05/31/19 02:18 Total Bilirubin 0.8 mg/dL (0.2-1.3) 05/30/19 16:40 Direct Bilirubin 0.3 mg/dL (0.0-0.4) 05/30/19 16:40 Neonat Total Bilirubin Not Reportable 05/30/19 16:40 Neonat Direct Bilirubin Not Reportable 05/30/19 16:40 Neonat Indirect Bili Not Reportable 05/30/19 16:40 AST 21 U/L (17-59) 05/30/19 16:40 ALT 10 U/L (<50) 05/30/19 16:40 Alkaline Phosphatase 91 U/L (38-126) 05/30/19 16:40 Creatine Kinase 100 U/L (55-170) 05/31/19 09:04 CK-MB (CK-2) 2.30 ng/mL (<4.55) 05/31/19 09:04 Troponin I 0.016 ng/mL 05/31/19 09:04 NT-Pro-B Natriuret Pep 06052 pg/mL (<125) H 05/30/19 16:40 Total Protein 7.1 g/dL (6.3-8.2) 05/30/19 16:40 Albumin 3.9 g/dL (3.5-5.0) 05/30/19 16:40 Slides for Path Review Cancelled 06/01/19 04:15 05/30/19 05/30/19 05/30/19 16:40 20:28 20:35 CK-MB (CK-2) 2.60 Troponin I 0.045 0.037 0.036 NT-Pro-B Natriuret Pep 01118 H 05/31/19 05/31/19 02:18 09:04 CK-MB (CK-2) 2.03 2.30 Troponin I 0.022 0.016 NT-Pro-B Natriuret Pep Impressions: Chest X-Ray 05/30/19 16:06 IMPRESSION: Findings are consistent with interstitial edema in the setting of COPD. Small associated effusions. Chest/Abdomen CTA 05/30/19 18:04 IMPRESSION: No pulmonary embolism. Severe COPD. Moderate right greater than left pleural effusions. Bilateral lower lobe interstitial thickening suggestive of pulmonary edema. Chest X-Ray 06/01/19 00:00 IMPRESSION: No acute cardiopulmonary disease. Resolution of previously seen evidence for CHF and bilateral pleural effusions. Plan Health Concerns: Medication compliance for CHF management and smoking cessation that increase his readmission risk. Plan of Treatment: Maintain on current anti congestive heart failure medication management. Close post hospitalization follow up management. Goals: Optimize his CHF management and continue counseling regarding smoking cessation. Stroke Is this a Stroke Patient?: No Acute Heart Failure - Is this a Heart Failure Patient?: Yes Documentation of LVEF assessment?: Yes LVEF < 40%?: Yes-if yes answer questions a through e a) Discharged on ACEI?: Yes b) Discharges on ARB?: No-document contraindications Reason(s) not discharged on ARB: Other - on ACE_I c) Discharged on ARNI?: No-Document Contraindications Reason(s) not discharged on ARNI: ACEI use within the prior 36 hours d) Discharged on evidence-based Beta lucia(carvedilol, sustained release metoprolol succinate, or bisoprolol)?: Yes e) For LVEF <35%, discharged on Aldosterone antagonist?: Yes 3. Anticoagulant therapy for permanect/persistent/paraoxysmal Afib or Aflutter: N/A Follow-up Appointment scheduled within 7 days?: Yes
== END 2019-06-05 09:16 | disposition home or self-care (01) | DRG 190 ==
LOC: ER 15:02 → EH 22:22 → 3N 05-31 00:28
PROVIDERS: ADMIT Internal Medicine Geriatric Medicine; ATTEND Internal Medicine Geriatric Medicine
DX: J44.1 Chronic obstructive pulmonary disease with (acute) exacerbation (principal); I50.23 Acute on chronic systolic (congestive) heart failure; I25.810 Atherosclerosis of coronary artery bypass graft(s) without angina pectoris; I42.9 Cardiomyopathy, unspecified; I11.0 Hypertensive heart disease with heart failure; G89.4 Chronic pain syndrome; F17.210 Nicotine dependence, cigarettes, uncomplicated; K21.9 Gastro-esophageal reflux disease without esophagitis; F32.9 Major depressive disorder, single episode, unspecified; I44.7 Left bundle-branch block, unspecified; R09.02 Hypoxemia; Z77.22 Contact with and (suspected) exposure to environmental tobacco smoke (acute) (chronic); I25.2 Old myocardial infarction; Z79.899 Other long term (current) drug therapy; Z95.1 Presence of aortocoronary bypass graft
CPT/HCPCS: 36415; 36600; 71045; 71046; 71275; 80048; 80053; 82550; 82553; 82803; 83735; 83880; 84484; 85025; 85610; 85730; 87040; 93005; 93010; 93306; 94640; 96374; 96375; 99285; J0696; J1650; J1940; J2920; J2930; J7512; J7620